=== PATIENT | male | born 1945 | race Caucasian/White ===

== ENCOUNTER 2019-02-18 11:04 | Emergency (ER) | payer OTHER ==
[~2019-02-18] VITALS: Ht 175.3 cm; Wt 105.7 kg
[2019-02-18] MEDS ORDERED: FLAXSEED1000 MG PO (11:41)
[2019-02-18] MEDS ORDERED: ONE DAILY MULT1 EAC1 PO (11:41)
[2019-02-18] MEDS ORDERED: VITAMIN D31000 UNIT PO (11:42)
[2019-02-18] MEDS ORDERED: LISINOPRIL40 MG PO (11:42)
[2019-02-18] MEDS ORDERED: MAGNESIUM OXID420 MG PO (11:42)
[2019-02-18] MEDS ORDERED: ZOCOR40 MG PO (11:42)
[2019-02-18] MEDS ORDERED: FUROSEMIDE40 MG PO (11:42)
[2019-02-18] MEDS ORDERED: CARVEDILOL12.5 MG PO (11:43)
[2019-02-18] MEDS ORDERED: ISOSORBIDE DINI20 MG PO (13:13)
--- NOTE | 2019-02-18 22:40 | EKG ---
[facility] [address] [facility] [place], [place] [address] Signed Poor data quality, interpretation may be adversely affected Normal sinus rhythm Low voltage QRS ST \T\ T wave abnormality, consider anterior ischemia Abnormal ECG No previous ECGs available Confirmed by ALICE CARRILLO MD ([id number]) on 02/18/2019 10:40:37 PM Electronically Signed By: ALICE CARRILLO MD 02/18/19 2240 PATIENT NAME: TANJAFRANCIS W Electrocardiogram DATE OF : 47 PHYSICIAN: ALICE CARRILLO MD REPORT #: [id number] REPORT IS CONFIDENTIAL AND NOT TO BE RELEASED WITHOUT AUTHORIZATION
== END 2019-02-18 13:29 | disposition home or self-care (01) ==
LOC: ED 11:04
DX: I11.0 Hypertensive heart disease with heart failure (principal); I50.9 Heart failure, unspecified; Z87.891 Personal history of nicotine dependence; Z79.899 Other long term (current) drug therapy
CPT/HCPCS: 71046; 80053; 83880; 84484; 85025; 93005; 93010; 96374; 99285-25

== ENCOUNTER 2019-03-08 08:16 | Inpatient (IN) | payer MEDICARE ==
[~2019-03-08] VITALS: Ht 175.3 cm; Wt 106.8 kg
[~2019-03-08 08:16] MED LIST: CARVEDILOL12.5 MG PO; FLAXSEED1000 MG PO; FUROSEMIDE40 MG PO; ISOSORBIDE DINI20 MG PO; LISINOPRIL40 MG PO; MAGNESIUM OXID420 MG PO; ONE DAILY MULT1 EAC1 PO; VITAMIN D31000 UNIT PO; ZOCOR40 MG PO
--- OUTSIDE RECORDS SUMMARY | 2019-03-08 08:20 | XMS ---
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 Denzel has no Care Guidelines for this patient. Meggan VISIT COUNT (12 MO.) [address] [facility] TOTAL 2 NOTE: Visits indicate total known visits. ED/C VISIT TRACKING (12 MO.) 03/08/2019 08:17 [facility] [place] TYPE: Emergency COMPLAINT: - COUGING UP BLOOD 02/18/2019 11:05 [facility] [place] TYPE: Emergency COMPLAINT: - BLOOD PRESSURE PROBLEM, SOB DIAGNOSES: - Shortness of breath - Other termite control service representative (current) drug therapy - Personal history of nicotine dependence - Hypertensive heart disease with heart failure - Heart failure, unspecified INPATIENT VISIT TRACKING (12 MO.) No inpatient visits to display in this time frame [email or web address]
[2019-03-08] MEDS ORDERED: VENTOLIN HFA18 GM INH (08:38)
[2019-03-08] MEDS ORDERED: CLONIDINE HCL0.1 MG PO (08:39)
--- NOTE | 2019-03-08 11:47 | NUR ---
1130 pt arrived on unit from ED via stretcher on heart monitor and 2L NC. No complaints of pain at this time. Will continue to monitor
--- NOTE | 2019-03-08 17:16 | NUR ---
1600 in to see pt. POC discussed all questions answered at this time. IV fluids DC per order. Will continue to monitor
--- NOTE | 2019-03-08 17:33 | EKG ---
[facility] [address] [facility] [place], [place] [address] Signed Sinus rhythm with premature atrial complexes Low voltage QRS T wave abnormality, consider anterior ischemia Prolonged QT Abnormal ECG When compared with ECG of 18-FEB-2019 11:15, premature atrial complexes are now present Confirmed by MAGALIS GRAVES DO ([id number]) on 03/08/2019 5:33:36 PM Electronically Signed By: MAGALIS GRAVES DO 03/08/19 1733 PATIENT NAME: FRANCIS AGRAWAL Electrocardiogram DATE OF : 47 PHYSICIAN: MAGALIS GRAVES DO REPORT #: [id number] REPORT IS CONFIDENTIAL AND NOT TO BE RELEASED WITHOUT AUTHORIZATION
--- NOTE | 2019-03-08 19:42 | NUR ---
Assisted patient to bathroom, SBA, gait steady, increased SOB noted with activity, RR between 34 and 40 with ambulation, SpO2 91% on 2L O2. Now resting in chair, RR now between 25 and 32, SpO2 98% on 2L, denies feeling SOB at rest. Alert and oriented x4, uses call light appropriately. HR well controlled, BP WNL, peripheral pulses felt in all extremities, edema in bilateral lower exremities noted, worse in right leg, right leg is warm to touch, left leg cool to touch, patient denies pain, cap refill <3 seconds in all extremities. Lungs have crackles in left upper and lower, clear on right side. bowel tones active, non-tender, denies nausea. Denies further needs at this time. Call light within reach.
--- NOTE | 2019-03-08 21:24 | NUR ---
Assisted patient to bed, remains SBA. Now resting comfortably with HOB elevated to 45 degrees, requires 2 pillows for sleeping comfort, patient states "it's the only way I can breathe at night." Denies further needs at thsi time. Vitals WNL, RR 24, SpO2 97% on 2L O2. Call light within reach.
--- NOTE | 2019-03-08 22:51 | NUR ---
Patient is restful with eyes closed, breathing is even and unlabored, SpO2 95% on 2L O2, RR 22. Call light within reach.
--- NOTE | 2019-03-08 23:19 | NUR ---
Assisted to bathroom, SBA, gait steady, RR increased to low 30s with activity, SpO2 down to 88% on 2L O2. Now resting in bed again, RR down to 22, SpO2 97% on 2L O2. Assessment done, crackles in LLL of lungs, clear throughout all otther lung collado, denies SOB while at rest. No other changes from previous assessment. BLE continue to have well felt peripheral pulses, right lower leg warm to touch, denies calf tenderness, 3+ edema remains. Denies further needs at this time, call light within reach.
--- NOTE | 2019-03-09 01:00 | NUR ---
Patient remains restful with eyes closed, breathing is even and unlabored, RR 21, SpO2 95% on 2L O2. Call light within reach.
--- NOTE | 2019-03-09 02:41 | NUR ---
Patient remains restful with eyes closed, breathing is even and unlabored, R 22, SpO2 97% on 2L O2. Call light within reach.
--- NOTE | 2019-03-09 03:54 | NUR ---
Remains restful, breathing unlabored, vitals WNL. Call light within reach.
--- NOTE | 2019-03-09 04:25 | NUR ---
Assisted to bathroom, SBA, gait steady, RR increased to 30s with ambulation, SpO2 remains < 95%. Now resting in bed again, RR down to 22 to 24, SpO2 98% on 2L O2. Assessment done, lungs have crackles in LLL, clear in all other collado. No acute changes from previous. Denies further needs at this time. Call light within reach.
--- NOTE | 2019-03-09 05:49 | NUR ---
Paient sitting up in bed watching tv, RR 20, SpO2 96% on 2L O2. Denies needs at this time. Call light within reach.
--- NOTE | 2019-03-09 05:52 | NUR ---
Patient rested well throughout the night. Vitals WNL, no complaints of pain. Alert and oriented, calls appropriately. RR 22 to 24 at rest, up to 30s with activity, has remained on 2L O2 all shift, SpO2 between 92% and higher with 2L. Lungs have crackles in LLL of lungs, clear in all other lung collado. 3+ pitting edema to RLE, warm to touch, 2+ pitting edema in LLE, denies calf tenderness, peripheral pulses well felt in BLE. Minimal interventions required.
--- NOTE | 2019-03-09 07:30 | NUR ---
REPORT RECIEVED. PATIENT IN CHAIR, IS W/O C/O.
--- NOTE | 2019-03-09 08:00 | NUR ---
ASSESSMENT DONE. DENIES PAIN OR SHORTNESS OF BREATH. TALKED WITH PAIENT ABOUT PLAN OF CARE FOR DAY. PATIENT IS UNDERSTANDING.
--- NOTE | 2019-03-09 09:00 | NUR ---
REMAINS IN CHAIR. TOOK 100% OF BREAKFAST. IS W/O C/O. VERY TALKATIVE.
--- NOTE | 2019-03-09 09:30 | NUR ---
EDUCATION ON PE GIVEN.
--- NOTE | 2019-03-09 09:50 | NUR ---
PATIENT WITH IN ROOM. PATIENT REMAINS IN CHAIR. STATES HE FEELS MORE COMFORTABLE IN CHAIR THAN BED.
--- NOTE | 2019-03-09 10:15 | NUR ---
PHYS THERAPY HERE TO WORK WITH PATIENT. PATIENT AMBULATED IN [facility], PHYS THERAPY AND RN WITH PATIENT. HR AT REST 66, WITH [id number]. O2 SAT ON 2 L NC WITH EXERTION 90-92 UPON RETURN TO ROOM. IS DYSPNEIC WITH EXERTION.
--- NOTE | 2019-03-09 12:00 | NUR ---
ASSESSMENT UNCHANGED. CONTINUE TO SIT IN CHAIR. WILL BE TRANSFERED TO MEDICAL FLOOR THIS AFTERNOON.
--- NOTE | 2019-03-09 14:00 | NUR ---
PT ARRIVED TO [facility] ROOM 115 VIA CHAIR ON 1LPNC. PT IS A/O X4 AND DENIES SOB WITH O2 SAT OF 94% PER CPOX. BEDSIDE REPORT RECEIVED FROM EDY JOSHI. ASSESSMENT COMPLETED. PT PROVIDED WITH CRANBERRY JUICE SODA PER REQUEST AND DENIES FURTHER NEEDS/CONCERNS. CALL LIGHT, PERSONAL ITEMS AND H20 IN REACH. PT DENIES PAIN, SOB, NASUEA OR ANY OTHER SYMPTOMS.
--- NOTE | 2019-03-09 14:00 | NUR ---
to med-surg via CHAIR. CHAIR SIDE REPORT GIVEN.
--- NOTE | 2019-03-09 15:52 | NUR ---
PT SITTING UP IN CHAIR, ASSISTED PT WITH ORDERING DINNER. CALL LIGHT AND H20 IN REACH. PT DENIES NASUEA, SOB OR PAIN. NO NEEDS/CONCERNS VOICED.
--- NOTE | 2019-03-09 16:57 | NUR ---
Medications reconciled with physician notes and patient interview
--- NOTE | 2019-03-09 17:58 | NUR ---
PT BACK TO CHAIR FROM RESTROOM WITH SBA. PT BACK ON CPOX AND REMAINS ON 1LPNC, SATTS 94% PER CPOX. Call light and h20 in reach. PM medication administered. Pt denies sob, pain or nasuea. Pt appears to be in no acute distress, [id number].
--- NOTE | 2019-03-09 19:07 | NUR ---
IN ROOM FOR REPORT, PT WAS RESTING WITH EYES CLOSED IN CHAIR AND O2 WAS AT 89%. CHRISTIE SNOW INCREASED O2 TO 1.5 LNC AND HE INCREASED TO 93% AND AWOKE. HE DENIES NEEDS AT THIS TIME. CALL LIGHT IS WITHIN REACH.
--- NOTE | 2019-03-09 20:40 | NUR ---
PT CALLED TO USE RESTROOM, ASSISTED HIM TO BED. WARM BLANK PROVIDED AND PERSONAL BELONGINGS WITHIN REACH. HE DENIES FURTHER NEEDS AT THIS TIME CALL LIGHT IS CLOSE.
--- NOTE | 2019-03-09 21:20 | NUR ---
IN ROOM TO ADMINISTER MEDICATIONS AND ASSESS PT. HE DENIES PAIN AT THIS TIME. PROVIDED PT WITH ORAL SWABS. PT QUESTIONED THE DIFFERENT DOSES OF HIS MEDICATIONS, HI DR GRAVES'S NOTES EXPLAINED THAT HE IS BEING TIRTRATED BACK TO NORMAL DOSE AND PT UNDERSTOOD. THIS RN HAD DIFFICULTY WITH Kambit [employer]ASS[employer] SO [employer] SOLUTION ARCHITECT BRYANT SCANNED HIS MEDICATIONS. PT IS READY FOR BED AND DENIES FURTHER NEEDS. CALL LIGHT IS WITHIN REACH.
--- NOTE | 2019-03-10 00:03 | NUR ---
PT IS RESTING WITH EYES CLOSED, RESPIRATIONS ARE EVEN AND NONLABORED ON 2 LNC AND 92% ON CPOX. CALL LIGHT IS WITHIN REACH.
--- NOTE | 2019-03-10 00:45 | NUR ---
PT'S CPOX WAS BEEPING D/T LOW BATTERY, FIXED ISSUE AND ASSISTED PT TO THE RESTROOM. HE IS BACK IN BED AND DENIES FURTHER NEEDS AT THIS TIME. CALL LIGHT IS WITHIN REACH.
--- NOTE | 2019-03-10 02:08 | NUR ---
PT IS RESTING WITH EYES CLOSED, RESPIRATIONS ARE EVEN AND NONLABORED ON 2LNC AND CPOX. CALL LIGHT IS WITHIN REACH.
--- NOTE | 2019-03-10 03:21 | NUR ---
PT IS RESTING WITH EYES CLOSED, RESPIRATIONS ARE EVEN AND NONLABORED ON CPOX. CALL LIGHT IS WITHIN REACH.
--- NOTE | 2019-03-10 04:30 | NUR ---
PT IS AWAKE FOR THE DAY, HE DENIES PAIN AT THIS TIME. VS, I&O, AND WEIGHT OBTAINED. HE DENIES NEEDS AT THIS TIME. CALL LIGHT IS WITHIN REACH.
--- NOTE | 2019-03-10 05:05 | NUR ---
PT HAD A GOOD NIGHT. HE DENIES HEMOPTYSIS AND PAIN. HIS 02 WAS INCREASED TO 2 LNC WHILE SLEEPING TO MAINTAIN ABOVE 90%. HE AMBULATES SBA AND HAS SOME SOB WITH EXERTION. HE RECEIVES SCHEDULED NEBS.
--- NOTE | 2019-03-10 05:21 | NUR ---
pt wanted a warm wash cloth to clean his face, we got into a convo about birds of prey- interesting to say the least. pt was satisfied with the wash cloth and convo. he is a swell veronica.
--- NOTE | 2019-03-10 07:00 | NUR ---
PT SITTING UP IN CHAIR, O2 SAT 95% ON 2LPNC SO TITRATED DOWN TO 1LPNC AND SATS AT 93%. PT DENIES SOB, PAIN OR ANY OTHER SX'S AT THIS TIME. CALL LIGHT AND H20 IN REACH. BEDSIDE REPORT RECEIVED FROM EDY ALVARADO.
--- NOTE | 2019-03-10 08:54 | NUR ---
Pt sitting up in chair watching tv. Pt maintaining o2 sats in low 90's on 1lpnc at rest. Assessment completed. Call light and h2o in reach. Pt denies sob, pain or any other symptoms. Pt verbalized eagerness to discharge today.
--- NOTE | 2019-03-10 10:27 | NUR ---
ANSWERED CALL LIGHT AND PT ASSISTED WITH SBA TO RESTROOM. PT AGREES TO USE CALL LIGHT WHEN FINISHED.
[2019-03-10] MEDS ORDERED: XARELTO15 MG PO (10:53)
[2019-03-10] MEDS ORDERED: XARELTO20 MG PO (10:55)
--- NOTE | 2019-03-11 11:31 | NUR ---
WAS NOTIFIED BY DR GRAVES THAT THE PT WANTED TO TALK ABOUT HOW TO GET IT ARRANGED TO GET [facility]. I CALLED HIS HOME AND HIS ANSWERED AND STATED THEY HAD BEEN SET UP WITH IN HOME MED OVER THE WEEKEND AND THAT THAT WOULD BE GOOD FOR NOW. THEN ABOUT AN HOUR TO HOUR AND A HALF THE PT HIMSELF CALLED AND STATES THAT HE WANTS HIS O2 TO BE [facility]OUGH [facility]. I TOLD HIM I WOULD START THAT PROCESS, BUT IT MIGHT TAKE A LITTLE TO GET IT SET UP WITH THEM. PT STATES THAT WOULD BE FINE. CHART NOTES FROM PT HOSPITAL VISIT 03/08/19 TO 03/10/19 SENT TO [facility] INCLUDING ER NOTES AND SUMMARY, H AND P, PROG NOTES, DC SUMMARY AND PACKET, ALSO ORDER AND RT HOME O2 QUALIF[facility] @[phone]. RECIEVED FAX CONFIRMATION OF THIS FAX. ALSO FAXED CHART NOTES TO JES AT [facility] IN PT DEPT. RECIEVED FAX CONFIRMATION ON THIS ALSO.
== END 2019-03-10 12:11 | disposition home or self-care (01) | DRG 175 ==
LOC: ED 08:16 → CCU 11:02 → MS 03-09 14:00
PROVIDERS: ADMIT Student in an Organized Health Care Education/Training Program
DX: I26.99 Other pulmonary embolism without acute cor pulmonale (principal); J96.21 Acute and chronic respiratory failure with hypoxia; I82.401 Acute embolism and thrombosis of unspecified deep veins of right lower extremity; I27.20 Pulmonary hypertension, unspecified; J44.9 Chronic obstructive pulmonary disease, unspecified; I10 Essential (primary) hypertension; E78.5 Hyperlipidemia, unspecified; E87.70 Fluid overload, unspecified; Z79.899 Other long term (current) drug therapy; Z87.891 Personal history of nicotine dependence
CPT/HCPCS: 36415; 71045; 71260; 80048; 80053; 83735; 83880; 84484; 85025; 85379; 93005; 93010; 93971; 94640; 94761; 94762; 96372; 97162; 97530; 99285-25; J1650; J7120; Q9967

== ENCOUNTER 2020-10-01 07:11 | Day surgery (SDC) | payer OTHER ==
[~2020-10-01] VITALS: Ht 177.8 cm; Wt 105.0 kg
[~2020-10-01 07:11] MED LIST changes: +CLONIDINE HCL0.1 MG PO; +ISOSORBIDE MONO20 MG PO; +K-TAB ER20 MEQ PO; +STIOLTO RESPIMAT4 GM INH; +VENTOLIN HFA18 GM INH; +XARELTO15 MG PO; +XARELTO20 MG PO
--- NOTE | 2020-10-01 09:06 | NUR ---
10/01/20 0906 Sandy Barkley 0900 PT ARRIVED TO PACU ON 2L VIA MASK, VSS. PT ASLEEP. 903 PT WAKES TO TACTILE STIMULI AND IS REORIENTED TO PACU. PT EASILY FALLS BACK TO SLEEP, RESP EVEN AND UNLABORED.
--- NOTE | 2020-10-01 17:05 | OR ---
[facility] [address] [place], [place] [address] Signed DATE OF OPERATION: 10/01/2020 SURGEON: Atul Gorman MD PREOPERATIVE DIAGNOSES: 1. Unremarkable colonoscopy at age 51. 2. Personal history of adenomatous colonic polyps, age 61 (2016). 3. Diverticulosis. 4. Long redundant left colon. POSTOPERATIVE DIAGNOSES: 1. Tizmfbw-[id number] sigmoid diverticulosis. 2. Angulated and tortuous sigmoid colon. PROCEDURE: Colonoscopy without biopsy. ESTIMATED BLOOD LOSS: None. INDICATIONS: Jose J is a 75-year-old gentleman, asked to see me for a followup colonoscopy. He had a negative colonoscopy in his 50s while living in [place], [place]. He then had a colonoscopy in February of 2016 with [facility] in [place], [place]. He was said to have a long redundant colon with diverticulosis and several adenomas and polyps were removed. He was age 71. Currently, he has no lower GI complaints. There is no family history of colon cancer or polyps. In the office, I gave Jose J a pamphlet on colonoscopy, we looked at that together along with the risks including, but not limited to gas bloating, crampy abdominal pain, bleeding, perforation requiring surgery, and missed diagnosis. We also discussed the need for IV conscious sedation. He expressed understanding and wished to proceed. DESCRIPTION OF PROCEDURE: Jose J was taken into our endoscopy suite and placed in the left lateral decubitus position. He was given a total of 4 mg of Versed and 100 mcg of fentanyl to cover the case. A digital rectal exam was performed and this was unremarkable. The adult colonoscope was introduced and advanced under direct visualization of the camera. He in fact had a difficult angulated and tortuous sigmoid colon. That actually took several minutes to get through very carefully. He does have moderate sigmoid diverticulosis. They are moderate in size, moderate in number, and scattered about. The scope then Electronically Signed By: ATUL GORMAN MD 10/01/20 1705 PATIENT NAME: JOSE J AGRAWAL OPERATIVE REPORT DATE OF : 47 REPORT #: [id number] PHYSICIAN: ATUL GORMAN MD PCP: BESS HAMMONDS MD REPORT IS CONFIDENTIAL AND NOT TO BE RELEASED WITHOUT AUTHORIZATION [facility] [address] [place] [id number] Signed passed quite readily around into the cecum itself. We could easily see the appendiceal orifice and ileocecal valve. The scope was slowly withdrawn. We taken several pictures for photodocumentation. His prep was slightly less than desirable. I think in the future he would be better served with a double bowel prep. Nevertheless, we saw no evidence of any polyps. His rectum was unremarkable. Upon retroflexion of scope, he has a couple of internal anal skin tags. After this, the gas was suctioned out. The colonoscope removed. Jose J tolerated the procedure quite well. RECOMMENDATIONS: Jose J can return in three years for repeat colonoscopy. He should undergo a double bowel prep. Atul Gorman MD ALB/MODL /[id number] cc: MD Bess Crowell MD Copies: ATUL GORMAN MD, MICAIAH MATTHEW MD ~ Electronically Signed By: ATUL GORMAN MD 10/01/20 1705 PATIENT NAME: JOSE J AGRAWAL OPERATIVE REPORT DATE OF : 47 REPORT #: [id number] PHYSICIAN: ATUL GORMAN MD PCP: BESS HAMMONDS MD REPORT IS CONFIDENTIAL AND NOT TO BE RELEASED WITHOUT AUTHORIZATION
== END 2020-10-01 10:00 | disposition home or self-care (01) ==
LOC: OPS 07:11 → DS 07:11 → OPS 08:15 → DS 08:15 → OPS 10:00
PROVIDERS: ATTEND Colon & Rectal Surgery
PROC: 0DJD8ZZ Inspection of Lower Intestinal Tract, Via Natural or Artificial Opening Endoscopic (ICD-10-PCS; principal; 2020-10-01 08:15)
DX: Z12.11 Encounter for screening for malignant neoplasm of colon (principal); Q43.8 Other specified congenital malformations of intestine; K57.30 Diverticulosis of large intestine without perforation or abscess without bleeding; K56.609 Unspecified intestinal obstruction, unspecified as to partial versus complete obstruction; K64.8 Other hemorrhoids; K64.4 Residual hemorrhoidal skin tags; I13.0 Hypertensive heart and chronic kidney disease with heart failure and stage 1 through stage 4 chronic kidney disease, or unspecified chronic kidney disease; N18.2 Chronic kidney disease, stage 2 (mild); I50.30 Unspecified diastolic (congestive) heart failure; J44.9 Chronic obstructive pulmonary disease, unspecified; E78.00 Pure hypercholesterolemia, unspecified; R73.9 Hyperglycemia, unspecified; Z86.718 Personal history of other venous thrombosis and embolism; Z86.010 Personal history of colon polyps; Z86.711 Personal history of pulmonary embolism; Z79.01 Long term (current) use of anticoagulants; Z79.899 Other long term (current) drug therapy
CPT/HCPCS: 99153; G0500; J2250; J3010; J7121

== ENCOUNTER 2025-08-13 13:39 | Emergency (ER) | payer OTHER, MEDICARE ==
[~2025-08-13] VITALS: Ht 177.8 cm; Wt 108.1 kg
[2025-08-13] MEDS ORDERED: JOCK ITCH RELIE14 GM (14:15)
[2025-08-13] MEDS ORDERED: NORVASC5 MG PO (14:17)
[2025-08-13] MEDS ORDERED: HYDRALAZINE HCL25 MG PO (14:17)
[2025-08-13] MEDS ORDERED: TORSEMIDE20 MG (14:18)
[2025-08-13 15:04] VITALS: BP 142/80
== END 2025-08-13 15:07 | disposition home or self-care (01) ==
LOC: ED 13:39
DX: L76.21 Postprocedural hemorrhage of skin and subcutaneous tissue following a dermatologic procedure (principal); I11.0 Hypertensive heart disease with heart failure; I50.9 Heart failure, unspecified; Z87.891 Personal history of nicotine dependence
CPT/HCPCS: 99283

== ENCOUNTER 2025-08-23 07:15 | Observation (INO) | payer OTHER, MEDICARE ==
[~2025-08-23] VITALS: Ht 177.8 cm; Wt 107.0 kg
[~2025-08-23 07:15] MED LIST changes: +HYDRALAZINE HCL25 MG PO; +JOCK ITCH RELIE14 GM; +NORVASC5 MG PO; +TORSEMIDE20 MG
--- OUTSIDE RECORDS SUMMARY | 2025-08-23 07:22 | XMS ---
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 - Visits in 30 Days [facility] PHONE: Unknown Denzel has no Care Guidelines for this patient. Meggan VISIT COUNT (12 MO.) [address] [facility] TOTAL 2 NOTE: Visits indicate total known visits. ED/UCC VISIT TRACKING (12 MO.) 08/23/2025 07:16 [facility] [place] TYPE: Emergency COMPLAINT: - SHORTNESS OF BREATH 08/13/2025 13:40 [facility] [place] TYPE: Emergency COMPLAINT: - POST OP PROBLEM DIAGNOSES: - Heart failure, unspecified - Hypertensive heart disease with heart failure - Personal history of nicotine dependence - Postprocedural hemorrhage of skin and subcutaneous tissue following a dermatologic procedure INPATIENT VISIT TRACKING (12 MO.) No inpatient visits to display in this time frame [email or web address]
[2025-08-23] MEDS ORDERED: ALBUTEROL/IPRATROPIUM 3 ML NEB ONE (07:28)
[2025-08-23 07:41] LABS: BASOPHILS 0.4 % (0.2-1.2); EOSINOPHILS 1.3 % (0.8-7.0); LYMPHOCYTES 22.0 % (21.8-53.1); MCH 34.2 PG (25.7-32.2); MCHC 33.2 g/dL (32.3-36.5); MCV 103.0 fL (79.0-92.2); MONOCYTES 8.4 % (5.3-12.2); NEUTROPHILS 67.7 % (34.0-67.9); RBC 5.00 M/uL (4.63-6.08)
[2025-08-23] MEDS ORDERED: ALBUTEROL/IPRATROPIUM 3 ML NEB INH ONE (07:45)
[2025-08-23] MEDS ORDERED: ALBUTEROL/IPRATROPIUM 3 ML NEB INH PRN (07:45)
[2025-08-23 08:00] LABS: ALT (SGPT) 19.0 U/L (14-59); AST (SGOT) 18.0 U/L (15-37); GLOMERULAR FILTRATION RATE,EST 59.0 mL/min (>60); PROTEIN, TOTAL 7.4 g/dL (6.4-8.2); UREA NITROGEN 21.0 mg/dL (7-18)
[2025-08-23] MEDS ORDERED: SODIUM CHLORIDE 0.9% 500 ML IV PRN (09:15)
[2025-08-23] MEDS ORDERED: AMLODIPINE BESYLATE 5 MG TAB PO SCH (10:45)
[2025-08-23] MEDS ORDERED: FUROSEMIDE 40 MG TAB PO SCH (10:46)
[2025-08-23] MEDS ORDERED: ISOSORBIDE MONONITRATE 20 MG TAB PO SCH (10:47)
[2025-08-23] MEDS ORDERED: AZITHROMYCIN 500 MG in DEXTROSE 5% 250 ML IV SCH (10:56)
[2025-08-23] MEDS ORDERED: SODIUM CHLORIDE 0.9% 1,000 ML IV SCH (11:00)
[2025-08-23] MEDS ORDERED: ACETAMINOPHEN 325 MG TAB PO PRN (11:00)
[2025-08-23] MEDS ORDERED: PHARMACY RENAL DOSE ADJUSTMENT 1 DOSE MISC PO SCH (12:00)
[2025-08-23 12:33] VITALS: BP 138/85
--- NOTE | 2025-08-23 13:50 | NUR ---
Patient to the medical floor. Patient is awake, alert and oriented x3. Patient's vital signs stable, afebrile. Patient is on 4L oxygen per nc, sp02 96%. Patient reports shortness of breath, hob elevated. Patient oriented to room and call light.
[2025-08-23] MEDS ORDERED: ALBUTEROL/IPRATROPIUM 3 ML NEB INH SCH (14:00)
[2025-08-23 18:20] VITALS: BP 159/89
[2025-08-23 18:58] VITALS: BP 159/89
--- NOTE | 2025-08-23 19:49 | NUR ---
GOT REPORT FROM DAY SHIFT NURSE.
[2025-08-23 20:31] VITALS: BP 146/79
[2025-08-23 21:59] VITALS: BP 146/79
--- NOTE | 2025-08-23 22:07 | NUR ---
PATIENT CURRENTLY SLEEPING IN BED WITH 2L NC ON. PATIENT HAS A CPOX ON. TELE 8. DENIES ANY CARES AT THIS TIME. BED IN LOW POSITION. CALL LIGHT WITHIN REACH.
--- NOTE | 2025-08-23 22:21 | NUR ---
PATIENT FEET ELEVATED. HOB UP TO PATIENTS COMFORT.
--- NOTE | 2025-08-23 23:42 | NUR ---
PATIENT CURRENLTY SLEEPING, REGULAR RESPIRATIONS NOTED.
[2025-08-24] VITALS (7 sets, daily range): BP systolic 133–166; BP diastolic 72–110
--- NOTE | 2025-08-24 01:55 | NUR ---
NEW IV FLUIDS HUNG UP, PATIENT REQUEST A PUDDING FOR A SNACK. DENIES ANY OTHER NEEDS.
--- NOTE | 2025-08-24 02:23 | NUR ---
PATIENT SLEEPING, REGULAR RESPIRATIONS NOTED.
--- NOTE | 2025-08-24 04:21 | NUR ---
PATIENT CALLED TO USE THE URINAL. URINAL WAS EMPTIED. CALL LIGHT IS WITHIN REACH AND NO FURTHER NEEDS AT THIS TIME.
--- NOTE | 2025-08-24 05:13 | NUR ---
PATIENT UP FOR STANDING WEIGHT LAB WAS IN ROOM AND PATIENT AWAKE. FRESH COFFEE GIVEN. PATIENT WATCHING TV.
[2025-08-24 05:14] LABS: BASOPHILS 0.1 % (0.2-1.2); EOSINOPHILS 0 % (0.8-7.0); LYMPHOCYTES 6.4 % (21.8-53.1); MCH 33.8 PG (25.7-32.2); MCHC 33.2 g/dL (32.3-36.5); MCV 101.7 fL (79.0-92.2); MONOCYTES 2.2 % (5.3-12.2); NEUTROPHILS 90.8 % (34.0-67.9); RBC 4.62 M/uL (4.63-6.08)
[2025-08-24 05:24] LABS: GLOMERULAR FILTRATION RATE,EST 53.0 mL/min (>60); UREA NITROGEN 22.0 mg/dL (7-18)
--- NOTE | 2025-08-24 05:35 | NUR ---
PT SITTING UP IN BED WATCHING TV. VITALS DONE, WATER REFILLED. CALL LIGHT IN REACH, NO NEEDS AT THIS TIME/
--- NOTE | 2025-08-24 07:15 | NUR ---
REPORT RECIEVED FROM EDY VILLEDA. PATIENT RESTING IN BED AND STATES HE IS WAITING FOR BREAKFAST AND HIS . WHITE BOARD UPDATED. PATIENT WITHOUT ANY NEEDS AT THIS TIME. CALL LIGHT AND PERSONAL BELONGINGS ARE WITHIN REACH.
--- NOTE | 2025-08-24 08:43 | NUR ---
PATIENT MEDICATED PER EMAR. PATIENT ASSESMENT COMPLETED. VITAL SIGNS TAKEN AND ARE STABLE. PATIENT IS WITHOUT FURHTER NEEDS AT THIS TIME. CALL LIGHT AND PERSONAL BELONGINGS ARE WITHIN REACH. IV FLUIDS INFUSING PER ORDER.
--- NOTE | 2025-08-24 09:30 | NUR ---
In with pt with the respiratory therapist to assist her with qualifying the pt for home O2. The pt states he is on O2 at home but doesn't know how much, but that his knows. After ambulating with the RT, it is noted that the pt had to stop twice and required 4LPM via NC. Sats dropped down to 77 at the lowest. Pt back to bed. arrives and is speaking with RT now.
--- NOTE | 2025-08-24 09:51 | NUR ---
PT SITTING UP IN BED, SEEMS CONFUSED ABOUT WHERE HE IS. CLEANED UP PT ROOM AND REMOVED TRASH. PT HAS CALL LIGHT WITHIN REACH. RESPITORY THERAPY IN ROOM AND SPOUSE JUST ARRIVED.
--- NOTE | 2025-08-24 10:45 | NUR ---
PC to [facility] in [place] to ask about setting up Home O2 for this pt as Case Mgmnt is not available here on Sundays (okay per Credit Card Interviewer, Flako Pritchett). Spoke with cdl dedicated truck driver Wilder who advised he is coming from [facility] and provided his cell phone number for the pt to call when they get home. He advised that I needed to fax pt contact information, insurance information, and a RX to [facility] in [place] so they can bill insurance on Monday. Fax sent with cover sheet and PC to [facility] in [place] to let them know what I was faxing. I will leave a note for Case management.
--- NOTE | 2025-08-24 10:50 | NUR ---
PATIENT SITTING UP IN HIS BED AND IS WITHOUT ANY NEEDS AT THIS TIME. CALL LIGHT AND PERSONAL BELONGINGS ARE WITHIN REACH.
[2025-08-24] MEDS ORDERED: AZITHROMYCIN250 MG PO (12:11)
[2025-08-24] MEDS ORDERED: METHYLPREDNISOLO4 M1 PO (12:11)
--- NOTE | 2025-08-24 13:42 | NUR ---
PT GETTING READY TO LEAVE. HELPED PT GET DRESSED, THEN RN CAME IN TO SAY THERE WAS A DELAY DUE TO THE PERSON BRINGING O2 JUST LEAVING [place]. PT WILL WATCH TV FOR ANOTHER HOUR UNTIL O2 PERSON ARRIVES.
--- NOTE | 2025-08-24 13:46 | NUR ---
Wilder from [facility] here for pt portable home O2 for him to go home with
--- NOTE | 2025-08-24 15:15 | EKG ---
[facility] [address] [facility] [place] [address] Signed Atrial fibrillation with premature ventricular or aberrantly conducted complexes Left axis deviation Pulmonary disease pattern Nonspecific ST and T wave abnormality Prolonged QT Abnormal ECG When compared with ECG of 08-MAR-2019 08:46, Atrial fibrillation has replaced Sinus rhythm ST now depressed in Inferior leads Nonspecific T wave abnormality no longer evident in Inferior leads T wave inversion no longer evident in Anterior leads Confirmed by GISELE PURI MD ([id number]) on 08/24/2025 3:14:43 PM Electronically Signed By: GISELE PURI 08/24/25 1515 PATIENT NAME: FRANCIS AGRAWAL Electrocardiogram DATE OF : 47 PHYSICIAN: GISELE PURI REPORT #: [id number] REPORT IS CONFIDENTIAL AND NOT TO BE RELEASED WITHOUT AUTHORIZATION
--- NOTE | 2025-08-25 10:29 | NUR ---
ORDER, CLINICALS, FACESHEET FAXED TO [facility] AND [facility] FOR HOME OXYGEN
--- NOTE | 2025-08-25 14:53 | NUR ---
RECEIVED CALL FROM LIANE AT [facility] REGARDING WHICH INSURANCE PATIENT HAS HIS PRIMARY. CALLED AND SPOKE WITH [employer], . STATES PATIENT IS MOBILE WITHOUT ISSUES AND THEY DO NOT FEEL HE NEEDS HOME HEALTH. CALLED HH AND CANCELLED ORDERS.
== END 2025-08-24 13:55 | disposition home or self-care (01) ==
LOC: ED 07:15 → MS 11:56
PROVIDERS: Emergency Medicine; ADMIT Internal Medicine; ATTEND Internal Medicine
DX: J44.1 Chronic obstructive pulmonary disease with (acute) exacerbation (principal); J96.01 Acute respiratory failure with hypoxia; I11.0 Hypertensive heart disease with heart failure; I50.9 Heart failure, unspecified; E66.9 Obesity, unspecified; Z68.33 Body mass index [BMI] 33.0-33.9, adult; Z66 Do not resuscitate; Z87.891 Personal history of nicotine dependence; Z79.01 Long term (current) use of anticoagulants; Z79.899 Other long term (current) drug therapy; Z91.148 Patient's other noncompliance with medication regimen for other reason
CPT/HCPCS: 36415; 71045; 80048; 80053; 83735; 83880; 84484; 85025; 93005; 93010; 94640; 94760; 94761; 96365; 96376; 99285-25; G0378; J0456; J2919; J7030; J7060

== ENCOUNTER 2025-09-09 08:42 | Inpatient (IN) | payer OTHER, MEDICARE ==
[~2025-09-09] VITALS: Ht 177.8 cm; Wt 102.6 kg
[2025-09-09] VITALS (7 sets, daily range): BP systolic 104–164; BP diastolic 60–92
[~2025-09-09 08:42] MED LIST changes: +AZITHROMYCIN250 MG PO; -CARVEDILOL12.5 MG PO; +CARVEDILOL25 MG PO; -CLONIDINE HCL0.1 MG PO; +CLONIDINE HCL0.3 MG PO; +METHYLPREDNISOLO4 M1 PO; +ONE DAILY MUL400 MCG PO; -ONE DAILY MULT1 EAC1 PO; -TORSEMIDE20 MG; +TORSEMIDE20 MG PO
--- OUTSIDE RECORDS SUMMARY | 2025-09-09 08:45 | XMS ---
PreManage Notification: FRANCIS AGRAWAL Security Stage Electrician Events No recent Security Events currently on file CRITERIA MET - [facility] - 2 Visits in 30 Days [facility] Current PHONE: Unknown Denzel has no Care Guidelines for this patient. Meggan VISIT COUNT (12 MO.) 3 [facility] TOTAL 3 NOTE: Visits indicate total known visits. ED/C VISIT TRACKING (12 MO.) 09/09/2025 08:43 [facility] [place] TYPE: Emergency COMPLAINT: - SHORTNESS OF BREATH 08/23/2025 07:16 [facility] [place] TYPE: Emergency COMPLAINT: - SHORTNESS OF BREATH 08/13/2025 13:40 [facility] [place] TYPE: Emergency COMPLAINT: - POST OP PROBLEM DIAGNOSES: - Heart failure, unspecified - Hypertensive heart disease with heart failure - Personal history of nicotine dependence - Postprocedural hemorrhage of skin and subcutaneous tissue following a dermatologic procedure INPATIENT VISIT TRACKING (12 MO.) 08/23/2025 11:56 [facility] [place] TYPE: Observation COMPLAINT: - [facility] DIAGNOSES: - Acute respiratory failure with hypoxia - Body mass index [BMI] 33.0-33.9, adult - Chronic obstructive pulmonary disease with (acute) exacerbation - Do not resuscitate - Heart failure, unspecified - Hypertensive heart disease with heart failure - [facility] (current) use of anticoagulants - Obesity, unspecified - Other prison (current) drug therapy - Patient's other noncompliance with medication regimen for other reason - Personal history of nicotine dependence - Shortness of breath [email or web address]
[2025-09-09] MEDS ORDERED: ALBUTEROL/IPRATROPIUM 3 ML NEB INH PRN (09:00)
[2025-09-09] MEDS ORDERED: XARELTO15 MG PO (09:08)
[2025-09-09 09:30] LABS: BASOPHILS 0.3 % (0.2-1.2); EOSINOPHILS 0.5 % (0.8-7.0); LYMPHOCYTES 8.7 % (21.8-53.1); MCH 33.0 PG (25.7-32.2); MCHC 33.0 g/dL (32.3-36.5); MCV 100.0 fL (79.0-92.2); MONOCYTES 6.7 % (5.3-12.2); NEUTROPHILS 83.5 % (34.0-67.9); RBC 4.45 M/uL (4.63-6.08)
[2025-09-09 09:30] LABS: ALT (SGPT) 33.0 U/L (14-59); AST (SGOT) 29.0 U/L (15-37); GLOMERULAR FILTRATION RATE,EST 55.0 mL/min (>60); PROTEIN, TOTAL 6.9 g/dL (6.4-8.2); UREA NITROGEN 24.0 mg/dL (7-18)
[2025-09-09] MEDS ORDERED: FUROSEMIDE 100 MG/10 ML VIAL IV ONE (10:30)
[2025-09-09] MEDS ORDERED: OXYMETAZOLINE HCL 30 ML BTL NAS ONE (10:45)
[2025-09-09] MEDS ORDERED: TRANEXAMIC ACID 1,000 MG/10 ML AMP NAS ONE (10:45)
[2025-09-09] MEDS ORDERED: LIDOCAINE 2% VISCOUS 6 ML SYR TOP ONE ×2 (10:45→11:15)
[2025-09-09] MEDS ORDERED: LIDOCAINE 2% VISCOUS 6 ML SYR ONE (11:11)
[2025-09-09] MEDS ORDERED: TAMSULOSIN HCL 0.4 MG CAP PO ONE (11:45)
[2025-09-09] MEDS ORDERED: PANTOPRAZOLE SODIUM 40 MG TABEC PO SCH (12:25)
[2025-09-09] MEDS ORDERED: ACETAMINOPHEN 325 MG TAB PO PRN (12:30)
[2025-09-09] MEDS ORDERED: MAGNESIUM HYDROXIDE/AL HYDROX 30 ML CUP PO PRN (12:30)
[2025-09-09] MEDS ORDERED: ISOSORBIDE MONONITRATE 20 MG TAB PO SCH (12:33)
[2025-09-09] MEDS ORDERED: MAGNESIUM OXIDE 400 MG TABLET PO SCH (12:34)
[2025-09-09] MEDS ORDERED: ALBUTEROL SULFATE 8 GM INH INH PRN (12:45)
[2025-09-09] MEDS ORDERED: TRAMADOL HCL 50 MG TAB PO PRN (12:45)
[2025-09-09] MEDS ORDERED: NITROGLYCERIN 0.4 MG SUBL SL PRN (12:45)
[2025-09-09] MEDS ORDERED: FUROSEMIDE 40 MG/4 ML VIAL IV SCH (14:00)
[2025-09-09] MEDS ORDERED: SEVOFLURANE 250 ML BTL INH ONE (14:23)
--- NOTE | 2025-09-09 14:48 | NUR ---
TELEPHONE REPORT RECEIVED FROM EDY HARMON AT 1350. THIS TO ER TO TRANSFER PT TO MED-SURG. PT ARRIVES TO MED-SURG ROOM 121 VIA GURNEY. PT IS ALERT AND ORIENTED ON 2LPM O2 VIA TN. NEW GOWN DONNED, PANTS REMOVED AND PLACED IN SAH BAG. STANDING WEIGHT OBTAINED. PT TRANSFER SELF TO BED, SOB WITH ACTIVITY. PT VOID IN URINAL 125ML CLEAR, LIGHT YELLOW URINE. VSS. O2 TITRATED UP TO 4LPM FOR SPO2 80% AFTER ACTIVTY. PT TITRATED BACK DOWN TO 2LPM. TELE#[address], SINUS RHYTHM, 70'S FOR BPM. ADMISSION ASSESSMENT AND PHYSICAL ASSESSMENT COMPLETE. MEAL PROVIDED TO PT PER REQUEST. PT AMBULATES INDEPENTLY TO BATHROOM TO VOID FREQUENTLY. PT ORIENTED TO ROOM, BED AND CALL LIGHT. NO FURTHER REQUESTS AT THIS TIME.
--- NOTE | 2025-09-09 14:59 | NUR ---
CPOX IN PLACE.
[2025-09-09] MEDS ORDERED: ALBUTEROL/IPRATROPIUM 3 ML NEB INH SCH (16:00)
--- NOTE | 2025-09-09 16:11 | NUR ---
Spoke with Jose J. He lives in a house with his . He has 2 steps into the home and 14 steps to the basement. Laundry is downstairs, but his does most of the laundry and head cleaning porter. She also drives and shops. Pt has rails in the bathroom and all steps/stairs. He has a cane, walker, wc, and a shower chair. He is a disabled from [employer] and is 100 % service connected. He does not use all of his benefits as he believes other veterans need them more. He plans on dc to home and his will drive him. He denies any financial or safety concerns. He does get a food box from the [facility], they give this to the homeless in town. No needs from .
[2025-09-09] MEDS ORDERED: ATORVASTATIN 20 MG TAB PO SCH (17:00)
[2025-09-09] MEDS ORDERED: POTASSIUM CHLORIDE 10 MEQ TABCR PO SCH (17:00)
--- NOTE | 2025-09-09 18:02 | NUR ---
PT SITS UP IN BED, EATS DINNER, WATCH TV, NO REQUESTS AT THIS TIME.
--- NOTE | 2025-09-09 18:20 | NUR ---
PATIENT UP TO BATHROOM AND BACK TO BED, SBA FWW. VITALS AND I&O'S DONE AND CHARTED. CALL LIGHT IN REACH. BED ALARM ON. NO FURTHER NEEDS AT THIS TIME.
--- NOTE | 2025-09-09 19:07 | EKG ---
[facility] [address] [facility] [place] [address] Signed Poor data quality, interpretation may be adversely affected Sinus bradycardia with 1st degree AV block with premature atrial complexes Left axis deviation Low voltage QRS Cannot rule out Anterior infarct , age undetermined Abnormal ECG When compared with ECG of 23-AUG-2025 07:29, Sinus rhythm has replaced Atrial fibrillation QT has shortened Confirmed by Muna Olmos MD () on 09/09/2025 7:07:51 PM Electronically Signed By: MUNA OLMOS MD 09/09/25 1907 PATIENT NAME: FRANCIS AGRAWAL Electrocardiogram DATE OF : 47 PHYSICIAN: MUNA OLMOS MD REPORT #: [id number] REPORT IS CONFIDENTIAL AND NOT TO BE RELEASED WITHOUT AUTHORIZATION
--- NOTE | 2025-09-09 19:09 | EKG ---
[facility] [address] [facility] [place] [address] Signed Sinus rhythm with sinus arrhythmia with 1st degree AV block with occasional premature ventricular complexes Left axis deviation Low voltage QRS Abnormal ECG When compared with ECG of 09-SEP-2025 09:05, Significant changes have occurred premature ventricular complexes are again present Confirmed by Muna Olmos MD () on 09/09/2025 7:09:16 PM Electronically Signed By: MUNA OLMOS MD 09/09/25 1909 PATIENT NAME: FRANCIS AGRAWAL Electrocardiogram DATE OF : 47 PHYSICIAN: MUNA OLMOS MD REPORT #: [id number] REPORT IS CONFIDENTIAL AND NOT TO BE RELEASED WITHOUT AUTHORIZATION
--- NOTE | 2025-09-09 19:28 | NUR ---
RECEIVED REPORT FROM EDY EVANS. PT LAYING IN BED WATCHING TV, REQUESTING LIGHTS TO BE TURNED OFF, DONE. NO OTHER NEEDS AT THIS TIME, CALL LIGHT WITHIN REACH.
--- NOTE | 2025-09-09 20:35 | NUR ---
PTS BP 104/72, MANUAL BP IN THE 90S/60S. MD CALLED AND STATED TO HOLD BP MEDS AND THAT HE WILL COME TO THE FLOOR AND ASSESS PT.
[2025-09-09] MEDS ORDERED: MELATONIN 3 MG TAB PO PRN (21:00)
--- NOTE | 2025-09-09 21:19 | NUR ---
MD OLMOS ON FLOOR. VERBAL ORDERS RECEIVED. VERIFIED USING REPEAT BACK METHOD.
[2025-09-09] MEDS ORDERED: ISOSORBIDE MONONITRATE 20 MG TAB PO ONE (23:30)
--- NOTE | 2025-09-09 23:43 | NUR ---
PT CALLED REPORTING NASAL CANNULA OUT OF PLACE, FIXED. O2 WITHIN RANGE, NO OTHER NEEDS AT THIS TIME, CALL LIGHT WITHIN REACH, ICE WATER REFILLED.
[2025-09-10] VITALS (10 sets, daily range): BP systolic 104–143; BP diastolic 57–92
--- NOTE | 2025-09-10 02:05 | NUR ---
PATIENT ASSISTED TO THE BATHROOM W/ FWW AND SBA. PT BACK TO BED. BLE ELEVATED WITH PILLOWS. PT ON 3L NC SATTING AT 92%. HEMATOLOGIST ONCOLOGIST AT BEDSIDE TAKING VITALS, NO OTHER NEEDS AT THIS TIME. CALL LIGHT WITHIN REACH.
--- NOTE | 2025-09-10 03:35 | NUR ---
PT LAYING IN BED EYES CLOSED, UNLABORED BREATHING, CPOX ON AT BEDSIDE. 3L NC, NO NEEDS AT THIS TIME, CALL LIGHT WITHIN REACH.
--- NOTE | 2025-09-10 05:10 | NUR ---
VS TAKEN, STANDING WEIGHT, LUNGS ASSESSED, PT REPORTS NO NEEDS AT THIS TIME. CALL LIGHT WITHIN REACH, PT REPOSITIONED WITH PILLOWS UNDER BLE AND BEHIND BACK IN HIGH REED POSITION.
[2025-09-10 05:14] LABS: BASOPHILS 0.2 % (0.2-1.2); EOSINOPHILS 0.7 % (0.8-7.0); LYMPHOCYTES 11.6 % (21.8-53.1); MCH 33.3 PG (25.7-32.2); MCHC 33.0 g/dL (32.3-36.5); MCV 100.7 fL (79.0-92.2); MONOCYTES 10.7 % (5.3-12.2); NEUTROPHILS 76.5 % (34.0-67.9); RBC 4.21 M/uL (4.63-6.08)
[2025-09-10 05:29] LABS: ALT (SGPT) 25.0 U/L (14-59); AST (SGOT) 21.0 U/L (15-37); GLOMERULAR FILTRATION RATE,EST 31.0 mL/min (>60); PROTEIN, TOTAL 6.2 g/dL (6.4-8.2); UREA NITROGEN 28.0 mg/dL (7-18)
--- NOTE | 2025-09-10 07:18 | NUR ---
Pt report received from EDY Vela and EDY Ellsworth. Pt is resting supine in bed, c/o feeling the need to blow his nose. Pt provided with a warm wash cloth and encouraged to dab, gently, at his nares to remove the crusted blood there. Pt states that his nose keeps bleeding but I do not see any bright red blood at this time. White board updated. Side rails up x4. Call light in reach.
--- NOTE | 2025-09-10 08:10 | NUR ---
In with pt for assessment, med administration, and vital signs. Pt work of breathing is labored, he is breathing evenly but shallow. Abdomen distended. Pt was able to stand and void into urinal unassisted and without increased shortness of breath. Pt respirations are approximately 32, however, as he settles, they decrease to 24. Pt provided with fresh iced water, milk, hot coffee with creamer. Side rails up x3, call light in reach. Bedside table and personal belongings in reach. Pt denies further needs at this time. OKSANA Loyd in with patient.
[2025-09-10] MEDS ORDERED: TAMSULOSIN HCL 0.4 MG CAP PO SCH (09:00)
[2025-09-10] MEDS ORDERED: FUROSEMIDE 40 MG/4 ML VIAL IV SCH (09:00)
[2025-09-10] MEDS ORDERED: AMLODIPINE BESYLATE 5 MG TAB PO SCH (09:00)
--- NOTE | 2025-09-10 09:08 | NUR ---
PATIENT IN CHAIR AT THIS TIME. PACKAGING SUPERVISOR ASSISTED PATIENT WITH URINAL AND THEN ASSISTED PATIENT TO CHAIR. THIS PACKAGING SUPERVISOR CHANGED PATIENTS LINENS. CALL LIGHT WITHIN REACH, NO FURTHER NEEDS AT THIS TIME.
--- NOTE | 2025-09-10 09:46 | NUR ---
ALERT IN RECLINER. STATES HE CAN NOT THINK OF ANY CM NEEDS AT THIS TIME, BUT HIS WILL BE IN THIS MORNING AND SHE PROVIDES CARES FOR HIM.
--- NOTE | 2025-09-10 11:12 | NUR ---
Dr. Wagner in with pt. This RN in as well.
[2025-09-10] MEDS ORDERED: PHARMACY RENAL DOSE ADJUSTMENT 1 DOSE MISC PO SCH (12:00)
--- NOTE | 2025-09-10 12:43 | NUR ---
In with pt for med administration. Pt is sitting up in the chair. OKSANA Loyd in room. Pt just returned from using the bathroom. Pt states that "my nose is bleeding again". He dabs a kleenex to the right nares and there is a scant amount of bright red blood on the kleenex. He states he thinks it oozes like this any time he gets up and does any activity (physical therapy had just also been in with the pt not long before this). BLE elevated in the chair. Call light in reach.
--- NOTE | 2025-09-10 13:38 | NUR ---
UR CLINICAL REVIEW: BELEN PHOTOGRAPHIC RESTORER MEETS INPT FOR CHF WITH NEW NEED FOR SUPPLEMENTAL OXYGEN, IV DIUESIS AND SERIAL LABS [facility] INPT 09/09/25 @ 8467 ORDER MATCHES REG CLINICALS FAXED TO [facility] FOR REVIEW DISCHARGE TO HOME WHEN STABLE 09/11/25 DC REVIEW
--- NOTE | 2025-09-10 17:42 | NUR ---
PATIENT IN BED AT THIS TIME. FINANCIAL ANALYSIS MANAGER ASSISTED PATIENT WITH URINAL. CALL LIGHT WITHIN REACH, NO FURTHER NEEDS.
--- NOTE | 2025-09-10 18:00 | NUR ---
AFTER VITALS WERE DONE CHANGED PATIENT'S GOWN AND HE WASHED HIS FACE. CALL LIGHT WITH IN REACH AND HE SIDE TABLE ON THE SIDE OF HIS BED.
--- NOTE | 2025-09-10 19:15 | NUR ---
PT SITTING UP IN CHAIR, REPORTS HE IS GOING TO SLEEP. NO NEEDS AT THIS TIME, CALL LIGHT WITHIN REACH.
--- NOTE | 2025-09-10 20:21 | NUR ---
PATIENT RESTING IN BED WITH EYES CLOSED. RESPIRATIONS EVEN AND UNLABORED. O2 SAT 85-87% ON 2L NC WHILE RESTING. PATIENT TITRATED TO 3L NC AT THIS TIME. NO FURTHER NEEDS. CALL LIGHT IN REACH.
--- NOTE | 2025-09-10 21:52 | EKG ---
[facility] [address] [facility] [place] [address] Signed Sinus rhythm with 1st degree AV block with premature supraventricular complexes and with occasional premature ventricular complexes Low voltage QRS Nonspecific ST abnormality Prolonged QT Abnormal ECG When compared with ECG of 09-SEP-2025 09:12, premature supraventricular complexes are now present Confirmed by Muna Olmos MD () on 09/10/2025 9:52:07 PM Electronically Signed By: MUNA OLMOS MD 09/10/252151 PATIENT NAME: FRANCIS AGRAWAL Electrocardiogram DATE OF : 47 PHYSICIAN: MUNA OLMOS MD REPORT #: [id number] REPORT IS CONFIDENTIAL AND NOT TO BE RELEASED WITHOUT AUTHORIZATION
--- NOTE | 2025-09-10 22:33 | NUR ---
PT ON 2L NC, CPOX AT BEDSIDE. PT LAYING IN BED EYES CLOSED, UNLABORED BREATHING.
--- NOTE | 2025-09-10 23:31 | NUR ---
PT LAYING IN BED, EYES CLOSED, UNLABORED BREATHING. NC AT 2L, CPOX ON AT BEDSIDE, CALL LIGHT WITHIN REACH.
--- NOTE | 2025-09-10 23:42 | NUR ---
PT ASSISTED TO THE BATHROOM W/ FWW AND LTM. PT BACK TO BED, PILLOWS UNDER BLE AND BACK. PT IN HIGH REED POSITION, REPORTS NO OTHER NEEDS AT THIS TIME, CALL LIGHT WITHIN REACH, LIGHTS OFF.
[2025-09-11] VITALS (15 sets, daily range): BP systolic 86–136; BP diastolic 43–108
--- NOTE | 2025-09-11 00:46 | NUR ---
PT LAYING IN BED, EYES CLOSED, UNLABORED BREATHING. NC AT 2L, CPOX ON AT BEDSIDE, TV ON. NO OTHER NEEDS AT THIS TIME, CALL LIGHT WITHIN REACH.
--- NOTE | 2025-09-11 01:45 | NUR ---
VS TAKEN, PT BP IN THE 80S OVER 60S, PT NOT SYMPTOMATIC. MAP OF 65. FINAL INSPECTOR BALANCE WHEEL NOTIFIED, PT REPORTS NO OTHER NEEDS AT THIS TIME, CALL LIGHT WITHIN REACH.
--- NOTE | 2025-09-11 02:21 | NUR ---
CALL PLACED TO MD OLMOS REGARDING PATIENTS BP. NO NEW ORDERS AT THIS TIME.
--- NOTE | 2025-09-11 03:30 | NUR ---
PT LAYING IN BED, WATCHING TV, REQUESTING APPLESAUCE, GIVEN. NO OTHER NEEDS AT THIS TIME, CPOX AT BEDSIDE, 2L NC, CALL LIGHT WITHIN REACH.
--- NOTE | 2025-09-11 04:55 | NUR ---
PT CALLED ASKING TO SIT UP IN CHAIR, TRIAL CONSULTANT AT BEDSIDE ASSISTING PT WITH FWW. NO OTHER NEEDS AT THIS TIME, CALL LIGHT WITHIN REACH.
[2025-09-11 05:29] LABS: BASOPHILS 0.2 % (0.2-1.2); EOSINOPHILS 0.9 % (0.8-7.0); LYMPHOCYTES 15.2 % (21.8-53.1); MCH 33.5 PG (25.7-32.2); MCHC 33.0 g/dL (32.3-36.5); MCV 101.5 fL (79.0-92.2); MONOCYTES 11.3 % (5.3-12.2); NEUTROPHILS 72.0 % (34.0-67.9); RBC 4.12 M/uL (4.63-6.08)
--- NOTE | 2025-09-11 05:41 | NUR ---
PT REPORTS FLANK PAIN, PRN PAIN MED GIVEN, NO OTHER NEEDS AT THIS TIME, PT REPOSITIONED WITH PILLOWS, CALL LIGHT WITHIN REACH.
[2025-09-11 05:45] LABS: ALT (SGPT) 24.0 U/L (14-59); AST (SGOT) 18.0 U/L (15-37); GLOMERULAR FILTRATION RATE,EST 27.0 mL/min (>60); PROTEIN, TOTAL 6.5 g/dL (6.4-8.2); UREA NITROGEN 34.0 mg/dL (7-18)
--- NOTE | 2025-09-11 07:40 | NUR ---
REPORT RECIEVED FROM EDY NOONAN. PATIENT SITTING UP IN HIS CHAIR AND REPORTS 10/10 FLANK PAIN "I'M PASSING THAT KIDNEY STONE!" PRN DOSE OF TRAMADOL ORDERED. PATIENT DENIES A HEAT OR ICE PACK AT THIS TIME. PATIENT IS WITHOUT FURTHER NEEDS AND STATES "I JUST NEED TO BE LEFT ALONE NOW UNTIL THIS MEDICATION STARTS HELPING". CALL LIGHT AND PERSONAL BELONGINGS ARE WITHIN REACH. WHITE BOARD UPDATED.
--- NOTE | 2025-09-11 08:11 | NUR ---
PATIENT MEDICATED PER EMAR. PATIENT IS SITTING UP IN HIS CHAIR EATING BREAKFAST. PATIENT DENIES FURTHER NEEDS AT THIS TIME. PATIENT IS 90% ON 2L NC. CPOX AT BEDSIDE. CALL LIGHT AND PERSONAL BELONGINGS ARE WITHIN REACH.
[2025-09-11] MEDS ORDERED: MORPHINE SULFATE 4 MG/ML VIAL IV PRN (08:30)
--- NOTE | 2025-09-11 09:43 | NUR ---
PATIENT SITTING UP IN HIS CHAIR AND IS WITHOUT ANY NEEDS AT THIS TIME. CALL LIGHT AND PERSONAL BELONGINGS ARE WITHIN REACH.
--- NOTE | 2025-09-11 10:40 | NUR ---
DR OLMOS AT BEDSIDE
--- NOTE | 2025-09-11 10:52 | NUR ---
PATIENT IN CHAIR AT THIS TIME. THIS BULK INTAKE WORKER ASSISTED PATIENT WTH USING THE URINAL. CALL LIGHT WITHIN REACH, NO FURTHER NEEDS AT THIS TIME.
[2025-09-11] MEDS ORDERED: EUCERIN ADVANC454 GM TOP (11:14)
[2025-09-11] MEDS ORDERED: CLOBETASOL PROP15 GM TOP (11:15)
[2025-09-11] MEDS ORDERED: FLUOROURACIL30 GM TOP (11:16)
--- NOTE | 2025-09-11 11:18 | NUR ---
MED REC COMPLETE
--- NOTE | 2025-09-11 11:20 | NUR ---
NEW IV PLACED TO PATIENT'S LEFT FOREARM. PATIENT TOLERATED WELL. PATIENT MEDICATED PER EMAR. GARCIA WITH CASE MANAGEMENT AT BEDSIDE. PATIENT AND HIS IS WITHOUT FURTHER NEEDS AT THIS TIME. CALL LIGHT AND PERSONAL BELONGINGS ARE WITHIN REACH.
--- NOTE | 2025-09-11 12:04 | NUR ---
INTO SEE PATIENT. SPOKE WITH PATIENT AND AT BEDSIDE. PATIENT TEARFUL IT HAS BEEN INCREASINGLY HARDER TO TAKE CARE OF HIM AT HOME. SHE WAS HOPING FOR THE PATIENT TO HAVE A SNF STAY. WAITING FOR PT RECCOMENDATIONS. WOULD LIKE PATIENT TO POTENTIALLY GO TO [facility] IF SO TO STAY CLOSE TO FAMILY. [facility] AND [facility] TO SEE IF THEY CAN GET SOME CAREGIVER SUPPORT AT HOME. [facility] FILLED OUT [facility] TO [facility]. PATIENT TO HAVE SURGERY LATER TODAY.
--- NOTE | 2025-09-11 12:15 | NUR ---
VERBAL ORDER FROM DR OLMOS TO HOLD PATIENT'S 1200 MEDICATION DUE TO PATIENT BEING NPO. MD WITHOUT FURTHER ORDERS.
--- NOTE | 2025-09-11 12:50 | NUR ---
PATIENT RESTING IN HIS CHAIR WITH HIS EYES CLOSED. EVEN AND UNLABORED RESPIRATIONS NOTED. CALL LIGHT AND PERSONAL BELONGINGS ARE WITHIN REACH. PATIENT'S AT BEDSIDE.
--- NOTE | 2025-09-11 13:00 | NUR ---
PATIENT RESTING IN HIS CHAIR WITH HIS EYES CLOSED. EVEN AND UNLABORED RESPIRATIONS NOTED. PATIENT'S AT BEDSIDE READING A BOOK. CALL LIGHT AND PERSONAL BELONGINGS ARE WITHIN REACH.
--- NOTE | 2025-09-11 13:45 | NUR ---
SPOKE WITH CASTILLO AT [facility]. SHE STATES PATIENT IS 100% SERVICE CONNECTED AND WE COULD POTENITALLY GET HIM INTO [place] FOR RAIL CAR WELDER CARE AND THEN FUTURE CAREGIVERS WHEN HE EVENTUALLY GOES HOME WITH . CHART FAXED TO [facility].
--- NOTE | 2025-09-11 14:05 | NUR ---
UR DC REVIEW: CONTINUED NEED FOR INPATIENT MONITORING OF RENAL FUNCTION, UROLOGY CONSULT FOR NEPHROLITHIASIS, HYDRONEPHROSIS AND DANIKA. NPO. STONE EXTRACTION NEEDED. PLAN FOR POTENTIAL PLACEMENT FOR SNF VS SKILLED NURSING CARE WITH [facility] ASSISTANCE. ADD: 09/12-09/13/25 [facility] REFERRAL SENT TO [facility] FOR PLACEMENT ASSISTANCE. NO FURTHER ACTIONS NEEDED.
--- NOTE | 2025-09-11 14:15 | NUR ---
PT IN ROOM WORKING WITH PATIENT.
--- NOTE | 2025-09-11 14:54 | NUR ---
PRE SURGERY CHG [place] COMPLETE. BED LINENS, SOCKS, AND GOWN CHANGED. SCD MACHINE PLACED AT THE BOTTOM OF THE BED.
--- NOTE | 2025-09-11 15:40 | NUR ---
PATIENT SITTING UP IN HIS CHAIR RESTING WITH HIS EYES CLOSED. EVEN AND UNLABORED RESPIRATIONS NOTED. PATIENT'S AT BEDSIDE. CALL LIGHT AND PERSONAL BELONGINGS ARE WITHIN REACH.
--- NOTE | 2025-09-11 16:51 | NUR ---
PATIENT RESTING IN BED WITH HIS AT BEDSIDE. PATIENT DENIES ANY NEEDS AT THIS TIME AND STATES HE IS COMFORTABLE. CALL LIGHT AND PERSONAL BELONGINGS ARE WITHIN REACH.
[2025-09-11] MEDS ORDERED: fentaNYL citrate 100 MCG/2 ML VIAL ONE (17:04)
[2025-09-11] MEDS ORDERED: LIDOCAINE HCL 2% 5 ML SDV ONE (17:04)
[2025-09-11] MEDS ORDERED: ROCURONIUM BROMIDE 50 MG/5 ML SYR ONE (17:04)
[2025-09-11] MEDS ORDERED: SODIUM CHLORIDE 0.9% 20 ML IV ONE (17:54)
[2025-09-11] MEDS ORDERED: TRANEXAMIC ACID 1,000 MG/10 ML AMP ONE (18:36)
[2025-09-11] MEDS ORDERED: SUGAMMADEX SODIUM 200 MG/2 ML ML ONE (18:40)
[2025-09-11] MEDS ORDERED: NALOXONE HCL 0.4 MG/ML VIAL ONE (18:52)
--- NOTE | 2025-09-11 19:13 | NUR ---
09/11/251912 [place],Rosey Lee 190: PATIENT ARRIVED TO PACU AWAKE WITH O2 MASK ON. C/O FEELING LIKE HE HAS TO PEE. PICKARD IN PLACE. PATIENT EDUCATED.
--- NOTE | 2025-09-11 19:30 | NUR ---
RECEIVED REPORT FROM EDY REYNOLDS. PT OFF UNIT, AT BEDSIDE. NO NEEDS AT THIS TIME.
--- NOTE | 2025-09-11 19:45 | NUR ---
RECEIVED REPORT FROM MAINTENANCE MACHINIST. PT VS TAKEN, SCDS ON, IVS SALINE FLUSHED AND SALINE LOCKED PER ORDER. PT ON 3L SIMPLE MASK WITH CPOX ON AT BEDSIDE. NO NEEDS AT THIS TIME, CALL LIGHT WITHIN REACH.
--- NOTE | 2025-09-11 20:22 | NUR ---
CLARIFIED ORDERS WITH MD, NEW TELEPHONE ORDERS PLACED.
[2025-09-11] MEDS ORDERED: OXYCODONE HCL 5 MG TAB PO PRN (20:30)
[2025-09-11] MEDS ORDERED: CEFDINIR 300 MG CAP PO SCH (21:00)
--- NOTE | 2025-09-11 21:40 | NUR ---
VS TAKEN, SCDS ON, CRACKERS AND APPLE JUICE GIVEN. CPOX AT BEDSIDE, 2L SIMPLE MASK, CALL LIGHT WITHIN REACH.
--- NOTE | 2025-09-11 22:56 | NUR ---
MANUAL BP TAKEN: 96/58, PT REPORTS NO SYMPTMS, WILL CONTINUE TO MONITOR. NO NEEDS AT THIS TIME, CALL LIGHT WITHIN REACH.
--- NOTE | 2025-09-11 23:12 | NUR ---
PT REPORTS HE HAS TO URINATE, REMINDED PT THAT HE HAS A CATHETER IN. PT UNDERSTANDS, PICKARD ASSESSED. NO OTHER NEEDS AT THIS TIME, CALL LIGHT WITHIN REACH.
[2025-09-12] VITALS (14 sets, daily range): BP systolic 82–118; BP diastolic 49–70
--- NOTE | 2025-09-12 00:29 | NUR ---
PT CALLED REPORTING HE NEEDS TO USE THE RESTROOM, EDUCATED PT THAT HE HAS A PICKARD IN. PT CHANGED TO NC ON 3L, PT EATING APPLESAUCE. MORE ICE WATER GIVEN, SCDS ON. REPORTS NO PAIN, NO OTHER NEEDS AT THIS TIME, CALL LIGHT WITHIN REACH.
--- NOTE | 2025-09-12 01:40 | NUR ---
VS TAKEN, PT REPORTS NO PAIN, CATHETER ASSESSED. PT REPORTS NO NEEDS AT THIS TIME, CPOX AT BEDSIDE, 3L NC. CALL LIGHT WITHIN REACH.
--- NOTE | 2025-09-12 03:01 | NUR ---
PT CALLED REPORTING TO URINATE, PT EDUCATED HE HAS A PICKARD IN, PT VERBALIZED UNDERSTANDING. CATHETER ASESSSED AND DRAINED. NO OTHER NEEDS AT THIS TIME, CALL LIGTH WITHIN REACH.
[2025-09-12 05:17] LABS: BASOPHILS 0.1 % (0.2-1.2); EOSINOPHILS 1.0 % (0.8-7.0); LYMPHOCYTES 9.6 % (21.8-53.1); MCH 33.3 PG (25.7-32.2); MCHC 32.4 g/dL (32.3-36.5); MCV 103.0 fL (79.0-92.2); MONOCYTES 9.2 % (5.3-12.2); NEUTROPHILS 79.9 % (34.0-67.9); RBC 3.96 M/uL (4.63-6.08)
--- NOTE | 2025-09-12 05:17 | NUR ---
GRIDCAP MACHINE OPERATOR AT BEDSIDE ASSISTING PT TO THE BATHROOM, NO OTHER NEEDS AT THIS TIME.
[2025-09-12 05:33] LABS: ALT (SGPT) 20.0 U/L (14-59); AST (SGOT) 15.0 U/L (15-37); GLOMERULAR FILTRATION RATE,EST 33.0 mL/min (>60); PROTEIN, TOTAL 6.6 g/dL (6.4-8.2); UREA NITROGEN 34.0 mg/dL (7-18)
--- NOTE | 2025-09-12 07:15 | NUR ---
REPORT RECIEVED FROM EDY NOONAN. PATIENT RESTING IN BED WITH HOB ELEVATED. PATIENT IS 90% ON 3L NC. CPOX AT BEDSIDE. PATIENT IS WITHOUT ANY NEEDS AT THIS TIME. CALL LIGHT AND PERSONAL BELONGINGS ARE WITHIN REACH.
--- NOTE | 2025-09-12 07:40 | NUR ---
THIS RN TO PATIENT ROOM, PT REQUESTING A BOOST UP IN BED BREAKFAST TRAY DELIVERED. THIS RN AND OKSANA BELLE ASSISTED. BREAKFAST TRAY SETUP FOR PATIENT. OXYGEN REMAINS IN PLACE WITH NASAL PACKING. PT DENIES ANY OTHER NEEDS AT THIS TIME, CALL LIGHT WITHIN REACH. BED ALARM IN PLACE FOR SAFETY.
--- NOTE | 2025-09-12 08:10 | NUR ---
PATIENT MEDICATED PER EMAR. RT AT BEDSIDE FOR BREATHING TREATMENTS. CALL LIGHT AND PERSONAL BELONGINGS ARE WITHIN REACH.
--- NOTE | 2025-09-12 10:00 | NUR ---
SPOKE WITH AND PATIENT. LET THEM KNOW [facility] ARE WORKING ON GETTING PATIENT APPROVED WITH [facility] AT [facility]. WITH POTENTIAL TO GET PATIENT HOME WITH CAREGIVERS. PATIENT AND AGREEABLE WITH THIS PLAN. [facility] WAITING FOR OPEN BED PENDING ACCEPTANCE.
--- NOTE | 2025-09-12 10:29 | NUR ---
PATIENT'S BP WAS LOW FOR 1000 VITALS. RETAKEN AT 1030 AND CONTINUED TO BE LOW, RN NOTIFIED. TWO SMALL STONES WERE FOUND IN URINE STRAINER AND LEFT FOR RN TO INSPECT. PATIENT REPORTS NO NAUSEA, DIZZINESS, OR PAIN.
--- NOTE | 2025-09-12 10:35 | NUR ---
THERAPY IN ROOM WITH PATIENT AT THIS TIME.
--- NOTE | 2025-09-12 11:30 | NUR ---
DR OLMOS AT BEDSIDE. PATIENT MEDICATED PER EMAR. PATIENT'S AT BEDSIDE. CALL LIGHT AND PERSONAL BELONGINGS ARE WITHIN REACH.
--- NOTE | 2025-09-12 12:00 | NUR ---
PATIENT REPORTING THAT HE NEEDS TO URINATE. PATIENT REMINDED THAT HE HAS A PICKARD AND PATIENT STATES "I KNOW BUT I NEED TO PEE". PICKARD FLUSHED WITH 40ML OF NS, AND FLUSHED WELL. PATIENT REPORTS RELIEF AFTER PICKARD FLUSHED. PATIENT LUNCH TRAY SET UP INFRONT OF PATIENT. PATIENT IS WITHOUT FURTHER NEEDS AT THIS TIME. CALL LIGHT AND PERSONAL BELONGINGS ARE WITHIN REACH.
--- NOTE | 2025-09-12 12:24 | NUR ---
DECREASED O2 TO 2 LPM.
--- NOTE | 2025-09-12 14:52 | NUR ---
PATIENT SITTING UP IN HIS CHAIR WITH HIS EYES CLOSED. EVEN AND UNLABORED RESPIRATIONS NOTED. CALL LIGHT AND PERSONAL BELONGINGS ARE WITHIN REACH.
--- NOTE | 2025-09-12 18:30 | NUR ---
PATIENT SITTING UP IN HIS CHAIR AND DENIES ANY PAIN AT THIS TIME. CALL LIGHT AND PERSONAL BELONGINGS ARE WITHIN REACH. OKSANA DOZIER IN ROOM OBTAINING VITAL SIGNS.
--- NOTE | 2025-09-12 19:16 | NUR ---
RECEIVED REPORT FROM EDY REYNOLDS. PT UP IN RECLINER, DOZING. AWAKENS BRIEFLY, DENIES NEEDS AT THIS TIME. WANTS TO REMAIN IN RECLINER FOR THE TIME BEING. CALL LIGHT WITHIN REACH.
--- NOTE | 2025-09-12 20:35 | NUR ---
Changed lighting for Pt in room. Adjusted NC to properly fit in Pt's nose. No other needs expressed by Pt. Call light left in reach. Bed alarm set.
--- NOTE | 2025-09-12 20:45 | NUR ---
PT CONTINUES UP IN RECLINER, WANTS TO REMAIN THERE FOR THE NIGHT. ORIENTED X 4 BUT FORGETFUL. CHAIR ALARM IN PLACE FOR SAFETY. USES CALL LIGHT APPROPRIATELY. DENIES PAIN. LSC BUT DIM TO BASES. ON 2L O2 VIA N/C. CPOX IN PLACE. HRR, TELEMETRY IN PLACE. PT HAS 1+ BLE EDEMA. [place] HOSE TO BLE. BLE ELEVATED IN RECLINER AND ON PILLOWS. BTA, UNSURE OF LBM. PICKARD IN PLACE, UP PINK W/ FEW CLOTS, PT DENIES SYMPTOMS W/ PICKARD TONIGHT. RHINO ROCKET IN PLACE TO LEFT NARE. LOTION APPLIED TO BACK FOR ITCHINESS. PT HAS SL TO LFA AND RFA, WNL. CALL LIGHT WITHIN REACH.
--- NOTE | 2025-09-12 21:50 | NUR ---
Provided iyer catheter care for Pt and provided new sheet for Pt in chair. No other needs expressed by Pt. Call light left in reach. Bed alarm set.
--- NOTE | 2025-09-12 22:15 | NUR ---
Turned off lights per Pt request. No other needs expressed by Pt. Call light left in reach. Bed alarm set.
--- NOTE | 2025-09-12 22:25 | NUR ---
PT ASLEEP IN HIS RECLINER. APPEARS COMFORTABLE. CHAIR ALARM IN PLACE. CALL LIGHT WITHIN REACH.
[2025-09-13] VITALS (11 sets, daily range): BP systolic 99–130; BP diastolic 51–82
--- NOTE | 2025-09-13 00:28 | NUR ---
Adjusted Pt's pillows and bedding PRN. Scratched Pt's back PRN per Pt request. No other needs expressed by Pt. Call light left in reach. Chair alarm set.
--- NOTE | 2025-09-13 00:28 | NUR ---
PT AWAKE, SLEEPING BETWEEN CARE. OKSANA JONES ASSISTED PT TO REPOSITION AND SCRATCH HIS BACK. NO OTHER NEEDS AT THIS TIME.
--- NOTE | 2025-09-13 01:30 | NUR ---
Emptied Pt's iyer catheter-Strained urine-no findings other than continued bright red blood-colored urine. No other needs expressed by Pt. Call light left in reach. Chair alarm set.
--- NOTE | 2025-09-13 02:35 | NUR ---
Adjusted Pt's pillows PRN. No other needs expressed by Pt. Call light left in reach. Chair alarm set.
--- NOTE | 2025-09-13 03:29 | NUR ---
Adjusted pillows for Pt behind head and under feet as requested. No other needs expressed by Pt. Call light left in reach. Chair alarm set.
--- NOTE | 2025-09-13 03:34 | NUR ---
PT SLEEP IN RECLINER, APPEARS COMFORTABLE.
[2025-09-13 05:11] LABS: BASOPHILS 0.2 % (0.2-1.2); EOSINOPHILS 1.7 % (0.8-7.0); LYMPHOCYTES 14.8 % (21.8-53.1); MCH 33.9 PG (25.7-32.2); MCHC 32.6 g/dL (32.3-36.5); MCV 104.0 fL (79.0-92.2); MONOCYTES 11.4 % (5.3-12.2); NEUTROPHILS 71.5 % (34.0-67.9); RBC 3.78 M/uL (4.63-6.08)
--- NOTE | 2025-09-13 05:25 | NUR ---
Emptied Pt's Lorenz Catheter-Pt's urine was strained with no changes in cranberry red color. Provided warm blanket. No other needs expressed by Pt. Call light left in reach. Chair alarm set. Readjusted pillows PRN.
[2025-09-13 05:29] LABS: ALT (SGPT) 15.0 U/L (14-59); AST (SGOT) 16.0 U/L (15-37); GLOMERULAR FILTRATION RATE,EST 51.0 mL/min (>60); PROTEIN, TOTAL 6.3 g/dL (6.4-8.2); UREA NITROGEN 32.0 mg/dL (7-18)
--- NOTE | 2025-09-13 06:00 | NUR ---
PT UP IN RECLINER, AWAKE. UP FOR STANDING SCALE WEIGHT W/ CGA. PT PROVIDED COFFEE PER REQUEST. NO OTHER NEEDS AT THIS TIME.
--- NOTE | 2025-09-13 06:31 | NUR ---
Scratched Pt's back PRN per Pt's request and adjusted pillows. No other needs expressed by Pt. Call light left in reach. Chair alarm set.
--- NOTE | 2025-09-13 07:05 | NUR ---
REPORT RECEIVED FROM EDY HOWARD. PATIENT SITTING UP IN HIS CHAIR WITH HIS EYES CLOSED. EVEN AND UNLABORED RESPIRATIONS NOTED. CALL LIGHT AND PERSONAL BELONGINGS ARE WITHIN REACH.
--- NOTE | 2025-09-13 08:58 | NUR ---
PATIENT IS SITTING IN CHAIR. VITAL SIGNS, I&OS AND AM CARE WERE DONE. PATIENT WAS SET UP TO BRUSH TEETH. PATIENTS CALL LIGHT IS WITHIN REACH AND NO FURTHER NEEDS AT THIS TIME.
[2025-09-13] MEDS ORDERED: ALBUTEROL SULFATE 0.083% 3 ML VIAL INH PRN (09:30)
--- NOTE | 2025-09-13 11:21 | NUR ---
PATIENT SITTING UP IN HIS CHAIR WITH HIS AT BEDSIDE. NO NEEDS AT THIS TIME. CALL LIGHT AND PERSONAL BELONGINGS ARE WITHIN REACH.
--- NOTE | 2025-09-13 11:39 | NUR ---
PT REPORTED TO OFFSET SECOND PRESS OPERATOR PAIN THE (L) HIP. THIS RN INTO ROOM TO EVALUATE PAIN, PT REPORTS / TO (L) HIP, UPON FURTHER REVIEW, HE STATES IT IS STILL THE AREA IT HAS BEEN WHICH IS THE (L) FLANK, URINE DRAINING BLOODY INTO CATHETER STILL. PRN TYLENOL GIVEN - SEE MAR. PT DENIES ANY OTHER NEEDS AT THIS TIME.
--- NOTE | 2025-09-13 11:45 | NUR ---
MD IN TO SEE PATIENT, ASSISTED PROVIDER IN GETTING SUPPLIES FOR RHINO BALLOON, DEFLATING, INSTILLED NS INTO LEFT NARE AND ALLOWING PATIENT TO LAY BACK IN CHAIR AT THIS TIME. PROVIDER WILL SLOWLY START REMOVING THE RHINO PACKING. PT TOLERATED WELL. PRESENT IN THE ROOM, NO ISSUES.
--- NOTE | 2025-09-13 13:05 | NUR ---
DR OLMOS AT BEDSIDE AND REMOVED RHINOROCKET. PATIENT TOLERATED WELL. BLEEDING CONTROLLED. PATIENT'S FACE/NARES CLEANED UP. PATIENT EDUCATED NOT TO BLOW HIS NOSE, PATIENT WITH VERBAL UNDERSTANDING. PATIENT AND HIS AT WITHOUT FURTHER NEEDS AT THIS TIME. CALL LIGHT AND PERSONAL BELONGINGS ARE WITHIN REACH.
--- NOTE | 2025-09-13 14:08 | NUR ---
PATIENT WAS ASSISTED TO THE SHOWER WITH FWW. PATIENT WAS ASSISTED WITH HARD TO REACH AREAS, PATIENT TOLERATED WELL. PERICARE AND CATHETER CARE WAS DONE. LINEN WAS CHANGED AND LOTION WAS APPLIED TO LOWER LEGS. PATIENT SHAVED HIS FACE. PATIENTS CALL LIGHT IS WITHIN REACH AND NO FURTHER NEEDS AT THIS TIME.
--- NOTE | 2025-09-13 15:15 | NUR ---
PATIENT SITTING UP IN HIS CHAIR AND IS WITHOUT ANY NEEDS AT THIS TIME. CALL LIGHT AND PERSONAL BELONGINGS ARE WITHIN REACH.
--- NOTE | 2025-09-13 16:23 | NUR ---
PATIENT IS IN THE CHAIR. PATIENTS CALL LIGHT IS WITHIN REACH AND NO FURTHER NEEDS AT THIS TIME.
--- NOTE | 2025-09-13 17:36 | NUR ---
PATIENT IS LAYING IN CHAIR. PATIENTS VITAL SIGNS AND I&OS WERE DONE. PATIENTS CALL LIGHT IS WITHIN REACH AND NO FUTHER NEEDS AT THIS TIME.
--- NOTE | 2025-09-13 19:35 | NUR ---
RECEIVED REPORT FROM EDY REYNOLDS. PT UP IN RECLINER RESTING, REPORTS WANTING TO STAY IN RECLINER FOR NOC. CHAIR ALARM IN PLACE. CALL LIGHT WITHIN REACH.
[2025-09-13] MEDS ORDERED: ARFORMOTEROL TARTRATE 15 MCG/2 ML VIAL INH SCH (20:00)
--- NOTE | 2025-09-13 20:15 | NUR ---
PT UP IN RECLINER, DENIES PAIN. ORIENTED X 4, ONLY SLIGHTLY FORGETFUL AT TIMES. VSS. USES CALL LIGHT APPROPRIATELY. CHAIR ALARM IN PLACE FOR SAFETY. LSC DIM TO BASES, CPOX IN PLACE. O2 SATS 88% ON CPOX, PT DID DB & C X 10 AND O2 SATS 91%. 2L N/C IN PLACE. HRR. 1+ EDEMA TO BLE, CAMDEN HOSE REAPPLIED TO BLE. BTA, PT REPORTS CONSTIPATION, HS BOWEL MEDS ADMINISTERED PER EMAR. PICKARD CATH W/ PINK UO, NO CLOTS NOTED. OKSANA VARGAS PERFORMED PICKARD CARE AND STRAINED UO-NO STONES. LFA AND RH SL WNL. BLE ELEVATED. CALL LIGHT WITHIN REACH.
[2025-09-13] MEDS ORDERED: SENNOSIDES/DOCUSATE 1 EA TAB PO SCH (21:00)
[2025-09-13] MEDS ORDERED: POLYETHYLENE GLYCOL 3350 1 PACKET PO SCH (21:00)
--- NOTE | 2025-09-13 22:33 | NUR ---
PT ASLEEP IN RECLINER, APPEARS COMFORTABLE. 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
--- NOTE | 2025-09-14 00:11 | NUR ---
PT ASLEEP, APPEARS COMFORTABLE.
--- NOTE | 2025-09-14 02:16 | NUR ---
PT SLEEPING SOUNDLY IN RECLINER.
[2025-09-14 05:07] LABS: BASOPHILS 0.2 % (0.2-1.2); EOSINOPHILS 3.7 % (0.8-7.0); LYMPHOCYTES 18.3 % (21.8-53.1); MCH 33.9 PG (25.7-32.2); MCHC 32.9 g/dL (32.3-36.5); MCV 102.9 fL (79.0-92.2); MONOCYTES 11.3 % (5.3-12.2); NEUTROPHILS 66.3 % (34.0-67.9); RBC 3.84 M/uL (4.63-6.08)
--- NOTE | 2025-09-14 05:23 | NUR ---
PT SLEEPING SOUNDLY IN RECLINER. APPEARS COMFORTABLE.
[2025-09-14 05:30] LABS: ALT (SGPT) 22.0 U/L (14-59); AST (SGOT) 22.0 U/L (15-37); GLOMERULAR FILTRATION RATE,EST 55.0 mL/min (>60); PROTEIN, TOTAL 6.4 g/dL (6.4-8.2); UREA NITROGEN 24.0 mg/dL (7-18)
--- NOTE | 2025-09-14 06:29 | NUR ---
PT AWAKE, REPORTS SLEEPING WELL AND FEELING GOOD THIS AM. PICKARD W/ PINK UO AND SOME SEDIMENT. UP OUT OF RECLINER FOR STNADING WEIGHT WITH OKSANA CHRISTENSEN.
[2025-09-14 06:36] VITALS: BP 135/81
--- NOTE | 2025-09-14 06:40 | NUR ---
GAVE PT WARM WASH CLOTH FOR FACE, AM CARE. TOOK OUT TRASH AND RN GOT PT FRESH COFFEE. TOOK OUT ALL TRASH AND FIXED PT'S PILLOWS BEHIND BACK AND HEAD. CALL LIGHT WITHIN REACH. PT SITTING IN CHAIR.
[2025-09-14 06:45] VITALS: BP 135/81
--- NOTE | 2025-09-14 07:20 | NUR ---
VERBAL REPORT RECEIVED FROM EDY HOWARD. PT IS AWAKE AND ALERT IN RECLINER. CALL LIGHT IN REACH.
--- NOTE | 2025-09-14 07:20 | NUR ---
VERBAL REPORT RECEIVED FROM EDY HOWARD.
--- NOTE | 2025-09-14 07:59 | NUR ---
PT RESTS IN RECLINER, AWAKE. REQUESTS TO STAND. PT ASSISTED TO STAND WITH FWW. PT STATES, "MY BACK IS ITCHY." GONZALO, EDY SHIFT CHARGE SECOND RN SKIN CHECK IN ROOM TO ASSESS. DR. OLMOS NOTIFIED, EVALUATES PT. PT BACK TO RECLINER, CHAIR ALARM ON, CALL LIGHT AND BELONGINGS IN REACH.
[2025-09-14 08:22] LABS: GLOMERULAR FILTRATION RATE,EST 62.0 mL/min (>60); UREA NITROGEN 23.0 mg/dL (7-18)
[2025-09-14 08:58] VITALS: BP 143/93
[2025-09-14] MEDS ORDERED: TRIAMCINOLONE 0.1% 15 GM TUBE TOP SCH (09:00)
--- NOTE | 2025-09-14 09:35 | NUR ---
PT RECEIVES BREATHING TREATMENT AND EVALUATION BY RT, RT IN ROOM.
[2025-09-14] MEDS ORDERED: SODIUM CHLORIDE 45 ML BTL NAS PRN (09:45)
[2025-09-14 13:11] VITALS: BP 125/67
--- NOTE | 2025-09-14 13:29 | NUR ---
PT UP TO TOILET VIA 1 PERSON ASSIST WITH FWW. YSABEL ALANIS.
--- NOTE | 2025-09-14 16:58 | NUR ---
ANSWERED PATIENT CALL LIGHT FOR ASSISTANCE WITH THE URINAL. PATIENT ABLE TO STAND WTIH 1PA FWW. URINAL EMPTIED, PATENT SITTING IN THE RECLINER, FEET ELEVATED, CHAIR ALARM SET. DINNER SET UP. PATIENT DENIES FURTHER NEEDS AT THIS TIME. CALL LIGHT IN REACH.
--- NOTE | 2025-09-14 17:22 | NUR ---
PT TOLERATES DINNER WELL. REMAINS ON 3LPM O2 NC, SPO2 93%. WAFFLE CUSHION IN PLACE UNDER PATIENT IN RECLINER.
[2025-09-14 18:15] VITALS: BP 143/85
[2025-09-14 20:25] VITALS: BP 134/74
--- NOTE | 2025-09-14 20:43 | NUR ---
PATIENT RESTING IN RECLINER ALERT AND ORIENTED, HE REPORTS HIS NOSE IS ITCHY AND HE FEELS LIKE HE NEEDS TO SNEEZE, HS MEDICATIONS ADMINISTERED, RX CREAM APPLIED TO BACK RASH, NS SPRAY USED TO MOISTEN NARES, PATIENT REPORTS IT FEELS BETTER AFTER. ASSESSMENT COMPLETE. PATIENT REPORTS NO OTHER NEEDS, CALL LIGHT IN REACH. HE REPORTS NO PAIN OR NAUSEA.
[2025-09-15] VITALS (7 sets, daily range): BP systolic 103–179; BP diastolic 68–88
--- NOTE | 2025-09-15 02:17 | NUR ---
PATIENT SLEEPS INTERMITTENLY, THEN USES CALL LIGHT FREQUESNTLY WHILE AWAKE FOR SMALL ADJUSTMENTS IN RECLINER AND BLANKETS ADJUSTED.
[2025-09-15 05:19] LABS: BASOPHILS 0.2 % (0.2-1.2); EOSINOPHILS 3.6 % (0.8-7.0); LYMPHOCYTES 19.8 % (21.8-53.1); MCH 33.6 PG (25.7-32.2); MCHC 32.7 g/dL (32.3-36.5); MCV 102.9 fL (79.0-92.2); MONOCYTES 11.8 % (5.3-12.2); NEUTROPHILS 64.4 % (34.0-67.9); RBC 3.84 M/uL (4.63-6.08)
--- NOTE | 2025-09-15 05:30 | NUR ---
PATIENT HAS SLEPT MINIMALLY OVER SHIFT, APPROX 3 HOURS AT LONGEST INTERVAL. HE HAS DENIES PAIN OR NAUSEA. NO NEW CONCERNS.
[2025-09-15 05:42] LABS: ALT (SGPT) 23.0 U/L (14-59); AST (SGOT) 22.0 U/L (15-37); GLOMERULAR FILTRATION RATE,EST 60.0 mL/min (>60); PROTEIN, TOTAL 6.4 g/dL (6.4-8.2); UREA NITROGEN 22.0 mg/dL (7-18)
--- NOTE | 2025-09-15 07:20 | NUR ---
VERBAL REPORT RECEIVED FROM EDY MATIAS. PT RESTS IN RECLINER WITH EYES CLOSED, RESP EVEN AND UNLABORED. CHAIR ALARM ON.
--- NOTE | 2025-09-15 09:08 | NUR ---
CHART UPDATES SENT TO [facility] AND KATIE LOCKETT.
--- NOTE | 2025-09-15 09:50 | NUR ---
INTO SEE PATIENT AND . EXPLAINED TO THEM [facility] DOES NOT HAVE BEDS HOPEFULLY TOMORROW. SENT CHART ALSO TO KATIE IN [place]. PENDING AT BOTH FACILITY. MARIA DOLORES [place] JOURNEYMAN PIPE FITTER AWARE.
[2025-09-15] MEDS ORDERED: FUROSEMIDE 40 MG/4 ML VIAL IV SCH (10:05)
--- NOTE | 2025-09-15 14:56 | NUR ---
patient completed his imm for discharge. filling out survery now.
[2025-09-15] MEDS ORDERED: predniSONE 20 MG TAB PO SCH (15:00)
--- NOTE | 2025-09-15 17:30 | NUR ---
PT REPORTS NASAL DRYNESS, RECEIVES NASAL MOISTURIZING SPRAY IN EACH NARE ORDERED, SEE EMAR.
--- NOTE | 2025-09-15 19:34 | NUR ---
REPORT RECEIVED FROM DAY SHIFT RN. PT IN RECLINER ALERT AND ORIENTED. DENIES NEEDS. WHITE BOARD UPDATED. CALL LIGHT IN REACH. CHAIR ALARM FOR SAFETY.
--- NOTE | 2025-09-15 22:39 | NUR ---
EVENING ASSESSMENT COMPLETE. SCHEDULED MEDS ADMIN PER EMAR. PT DENIES PAIN OR NAUSEA. DENIES SOB. OXYGEN TITRATED TO 2L/NC. SpO2 LOW 90'S. LUNGS CLEAR/DIM THROUGHOUT. IV IN LEFT FOREARM LEAKING. DC'D WNL. TIP INTACT. NEW 22G PLACED IN RIGHT FOREARM X 1 ATTEMPT. PT NANCY WELL. PT DENIES QUESTIONS OR CONCERNS. CALL LIGHT IN REACH. CHAIR ALARM FOR SAFETY.
--- NOTE | 2025-09-15 23:26 | NUR ---
PT IN RECLINER RESTING WITH EYES CLOSED. RESPIRATIONS EVEN. CALL LIGHT IN REACH.
[2025-09-16] VITALS (8 sets, daily range): BP systolic 141–156; BP diastolic 78–93
--- NOTE | 2025-09-16 01:08 | NUR ---
CALL LIGHT ANSWERED. SBA TO VOID IN URINAL. BACK TO RECLINER. CLOTH PROVIDED TO WASH HANDS. BLE ELEVATED IN RECLINER. NO FURTHER NEEDS. CALL LIGHT IN REACH.
--- NOTE | 2025-09-16 02:56 | NUR ---
PT RESTING IN RECLINER WITH EYES CLOSED. BLE ELEVATED. RESPIRATIONS EVEN. CALL LIGHT IN REACH.
[2025-09-16 05:22] LABS: BASOPHILS 0.1 % (0.2-1.2); EOSINOPHILS 0.1 % (0.8-7.0); LYMPHOCYTES 10.4 % (21.8-53.1); MCH 33.8 PG (25.7-32.2); MCHC 33.8 g/dL (32.3-36.5); MCV 99.8 fL (79.0-92.2); MONOCYTES 7.3 % (5.3-12.2); NEUTROPHILS 81.8 % (34.0-67.9); RBC 4.00 M/uL (4.63-6.08)
[2025-09-16 05:40] LABS: ALT (SGPT) 27.0 U/L (14-59); AST (SGOT) 22.0 U/L (15-37); GLOMERULAR FILTRATION RATE,EST 70.0 mL/min (>60); PROTEIN, TOTAL 6.7 g/dL (6.4-8.2); UREA NITROGEN 21.0 mg/dL (7-18)
--- NOTE | 2025-09-16 05:48 | NUR ---
LAB IN FOR MORNING DRAW. VS AND I&O OBTAINED. DAILY WEIGHT OBTAINED. ASSESSMENT UNCHANGED. NO FURTHER NEEDS. CALL LIGHT IN REACH.
--- NOTE | 2025-09-16 08:00 | NUR ---
REPORT RECEIVED FROM TIFFANIE SNOW. PATIENT IN CHAIR, CALL LIGHT IN REACH.
--- NOTE | 2025-09-16 08:50 | NUR ---
Pts in the room. UPdated they have a bed open at [place]. Dr. mirian Lux will be ready for dc tomorrow. is delighted there is a bed in [place]. I will contact Cyndee and set up a time. would like pt to go per eleuterio and I will schedule. Called Linda at [facility] and let her know this pt has changed their minds and would like to go to [place]. I then called [facility] and left a message for Eliana at the [facility] for this pt will go to [place] tomorrow around 9 am.
--- NOTE | 2025-09-16 08:56 | NUR ---
PATIENT IN CHAIR, AT BEDSIDE. VITAL SIGNS AND I AND O COMPLETE. SCHEDULED MEDICATIONS ADMINISTERED. ASSESMENT COMPLETE. PATIENT DENIES CONCERNS.
--- NOTE | 2025-09-16 09:32 | NUR ---
PATIENT IN CHAIR, ALARM ON. CALL LIGHT AND PERSONAL BELONGINGS IN REACH. PATIENT DENIES CONCERNS. AT BEDSIDE.
--- NOTE | 2025-09-16 10:15 | NUR ---
PATIENT WASHED THEIR FACE, BRUSHED THEIR TEETH, AND SHAVED WITH SBA FROM THIS ADJUNCT INSTRUCTOR IN ECONOMICS AND [facility] STUDENT. PATIENT IS SITTING IN THEIR RECLINER WITH CHAIR ALARM SET AND CALL LIGHT AND PERSONAL ITEMS WITHIN REACH. NO OTHER CARES WERE REQUESTED.
--- NOTE | 2025-09-16 11:04 | NUR ---
PATIENT AMBULATING THE HALLS WITH PHYSICAL THERAPY.
--- NOTE | 2025-09-16 11:17 | NUR ---
WC van scheduled for tomorrow at 9 am for pt to transport to [facility]. The transport will continuous pickling line pickler a wc from [facility].
--- NOTE | 2025-09-16 12:27 | NUR ---
PATIENT IN CHAIR, CALL LIGHT IN REACH. LUNCH AT BEDSIDE.
--- NOTE | 2025-09-16 13:09 | NUR ---
HELPING NURSE, PATIENT IN CHAIR, ROOM CLEANED UP. PATIENT DENIES ANY CARES AT THIS TIME. PATIENT IS GOING TO REST, SCDS ON, LEGS UP IN CHAIR. PATIENT HAS BELONGINGS ON BEDSIDE TABLE.
--- NOTE | 2025-09-16 13:23 | NUR ---
PATIENT IN CHAIR, CALL LIGHT AND PERSONAL BELONGINGS IN REACH. PATIENT DENIES CONCERNS AT THIS TIME.
--- NOTE | 2025-09-16 14:09 | NUR ---
PATIENT IN CHAIR. EYES CLOSED, CHEST RISE EVEN AND UNLABORED. CALL LIGHT AND PERSONAL BELONGINGS IN REACH.
--- NOTE | 2025-09-16 14:42 | NUR ---
PATIENT IN CHAIR. PATIENT PROVIDED WITH FRESH ICE WATER AND COFFEE AT HIS REQUEST. CALL LIGHT AND PERSONAL BELONGINGS IN REACH. PATIENT DENIES CONCERNS AT THIS TIME.
--- NOTE | 2025-09-16 14:53 | NUR ---
PATIENT INDEPENDENTLY BRUSHED THEIR TEETH WITH SBA TO THE BATHROOM. PATIENT RETURNED TO THE RECLINER. SCD'S REAPPLIED TO LEGS. CALL LIGHT AND PERSONAL ITEMS ARE WITHIN REACH.
--- NOTE | 2025-09-16 15:29 | NUR ---
In pts room to do CHF educations. Pt up in bedside chair. Education completed. Pt has knowledge of chf. Verbalized understanding. No questions at this time. Pt aware that I will return to room if he has any other questions.
--- NOTE | 2025-09-16 16:18 | NUR ---
PATIENT IN CHAIR, CALL LIGHT AND PERSONAL BELONGINGS IN REACH. TIDIED PATIENT'S SIDE TABLE AT HIS REQUEST. PATIENT DENIES FURTHER CONCERNS.
--- NOTE | 2025-09-16 16:53 | NUR ---
PATIENT IN CHAIR. SCHEDULED MEDICATION ADMINISTERED. CALL LIGHT AND PERSONAL BELONGINGS IN REACH. PATIENT DENIES CONCERNS.
--- NOTE | 2025-09-16 18:33 | NUR ---
PATIENT IN CHAIR, CALL LIGHT AND PERSONAL BELONGINGS IN REACH.
--- NOTE | 2025-09-16 19:25 | NUR ---
RECEIVED REPORT FROM EDY CANNON. PATIENT SITTING UP IN BED, REPORTS TO NEEDS AT THIS TIME. CALL LIGHT WITHIN REACH, WHITEBOARD UPDATED.
--- NOTE | 2025-09-16 20:40 | NUR ---
PT SITTING UP IN CHAIR, VS TAKEN, NO C/O PAIN, 1L NC, CPOX/SCDS ON. FRESH WATER GIVEN, NO OTHER NEEDS AT THIS TIME, CALL LIGHT WITHIN REACH.
--- NOTE | 2025-09-16 21:40 | NUR ---
PT SITTING UP IN BED WATCHING TV, NO NEEDS AT THIS TIME, CALL LIGHT WITHIN REACH.
--- NOTE | 2025-09-16 23:13 | NUR ---
PT LAYING IN CHAIR, EYES CLOSED, UNLABORED BREATHING. 1L NC WITH CPOX AT BEDSIDE, SATS AT 88. CALL LIGHT WITHIN REACH.
--- NOTE | 2025-09-17 00:45 | NUR ---
PT ASSISTED TO USE THE URINAL, PT BACK TO CHAIR WITH CPOX, SCDS, ADN 1L NC ON. NO OTHER NEEDS REPORTED, CHAIR ALARM ON, CALL LIGHT WITHIN REACH.
--- NOTE | 2025-09-17 02:33 | NUR ---
PT SITTING UP IN CHAIR, EYES CLOSED, UNLABORED BREATHING. CALL LIGHT WITHIN REACH, SCD/CAMDEN LEIGH ON, CPOX ON AT BEDSIDE/1L NC.
--- NOTE | 2025-09-17 04:01 | NUR ---
PT SITTING UP IN CHAIR, EYES CLOSED, UNLABORED BREATHING, CALL LIGHT WITHIN REACH. CPOX ON AT BEDSIDE, 1LNC WITH SATS AT 91.
[2025-09-17 04:40] VITALS: BP 150/87
[2025-09-17 04:57] VITALS: BP 150/87
--- NOTE | 2025-09-17 05:24 | NUR ---
PT SITTING UP IN CHAIR WATCHING TV. CALL LIGHT WITHIN REACH, COFFEE GIVEN, NO OTHER NEEDS AT THIS TIME.
[2025-09-17 05:47] LABS: GLOMERULAR FILTRATION RATE,EST 70.0 mL/min (>60); UREA NITROGEN 24.0 mg/dL (7-18)
[2025-09-17 06:03] LABS: BASOPHILS 0.2 % (0.2-1.2); EOSINOPHILS 0.8 % (0.8-7.0); LYMPHOCYTES 17.1 % (21.8-53.1); MCH 33.6 PG (25.7-32.2); MCHC 33.8 g/dL (32.3-36.5); MCV 99.3 fL (79.0-92.2); MONOCYTES 9.9 % (5.3-12.2); NEUTROPHILS 71.9 % (34.0-67.9); RBC 4.08 M/uL (4.63-6.08)
--- NOTE | 2025-09-17 07:06 | NUR ---
REPORT RECEIVED FROM ANITA SNOW. PATIENT IN BED, CALL LIGHT IN REACH.
--- NOTE | 2025-09-17 07:33 | NUR ---
PATIENT IN CHAIR, CALL LIGHT AND PERSONAL BELONGINGS IN REACH. ASSESMENT COMPLETE. PATIENT DENIES CONCERNS.
[2025-09-17] MEDS ORDERED: acetaZOLAMIDE 250 MG TAB PO ONE (07:45)
[2025-09-17] MEDS ORDERED: PREDNISONE20 MG PO (08:09)
[2025-09-17 08:23] VITALS: BP 162/94
--- NOTE | 2025-09-17 08:40 | NUR ---
PATIENT'S DISCHARGE V.S. TAKEN. IV WAS PULLED BY THIS COASTAL/HARBOR DEFENSE OFFICER. PATIENT WAS ASSISTED DRESSING AND SBA TO THE BATHROOM. PATIENT INDEPENDENTLY WASHED THEIR HANDS AND FACE, BRUSHED THEIR TEETH, AND BRUSHED THEIR HAIR. PATIENT RETURNED TO SIT IN THE RECLINER FOR BREAKFAST.
[2025-09-17] MEDS ORDERED: TORSEMIDE 20 MG TAB PO SCH ×2 (09:00)
--- NOTE | 2025-09-17 09:30 | NUR ---
CALLED [facility] TO GIVE VERBAL REPORT. WAS ON HOLD FOR >7 MIN AFTER TRANSFER TO NURSES STATION, WAS THEN FORWARDED TO [facility]. WILL AWAIT RETURN CALL. PATIENT OFF FLOOR WITH WHEELCHAIR VAN AT 0900.
--- NOTE | 2025-09-17 09:58 | NUR ---
RECEIVED RETURN CALL FROM JAN SNOW AT [facility]. GAVE TELEPHONE REPORT, ANSWERED ALL QUESTIONS. SHE VERBALIZED UNDERSTANDING AND DENIES FURTHER QUESTIONS OR CONCERNS AT THIS TIME.
== END 2025-09-17 09:00 | DRG 659 ==
LOC: ED 08:42 → MS 12:27
PROVIDERS: Emergency Medicine; Family Medicine; Student in an Organized Health Care Education/Training Program; Urology; ADMIT Internal Medicine; ATTEND Internal Medicine
PROC: 2Y41X5Z Packing of Nasal Region using Packing Material (ICD-10-PCS; 2025-09-09)
PROC: BT1F1ZZ Fluoroscopy of Left Kidney, Ureter and Bladder using Low Osmolar Contrast (ICD-10-PCS; 2025-09-11)
PROC: 0T778DZ Dilation of Left Ureter with Intraluminal Device, Via Natural or Artificial Opening Endoscopic (ICD-10-PCS; principal; 2025-09-11 15:15)
DX: N13.2 Hydronephrosis with renal and ureteral calculous obstruction (principal); I50.31 Acute diastolic (congestive) heart failure; J96.01 Acute respiratory failure with hypoxia; J44.1 Chronic obstructive pulmonary disease with (acute) exacerbation; I11.0 Hypertensive heart disease with heart failure; I44.0 Atrioventricular block, first degree; Z66 Do not resuscitate; R04.0 Epistaxis; I25.10 Atherosclerotic heart disease of native coronary artery without angina pectoris; N17.9 Acute kidney failure, unspecified; E78.00 Pure hypercholesterolemia, unspecified; L30.9 Dermatitis, unspecified; I27.20 Pulmonary hypertension, unspecified; Z91.148 Patient's other noncompliance with medication regimen for other reason; Z79.01 Long term (current) use of anticoagulants; Z99.81 Dependence on supplemental oxygen; Z79.51 Long term (current) use of inhaled steroids; Z87.891 Personal history of nicotine dependence; Z79.2 Long term (current) use of antibiotics; Z79.899 Other long term (current) drug therapy; Z87.19 Personal history of other diseases of the digestive system; Z87.39 Personal history of other diseases of the musculoskeletal system and connective tissue; Z79.52 Long term (current) use of systemic steroids
CPT/HCPCS: 00910; 30901; 36415; 71045; 71275; 74174; 74450; 80048; 80053; 83735; 83880; 84484; 85025; 85379; 92507; 92523; 93005; 93010; 93306; 94640; 94668; 94762; 94799; 96374; 97110; 97116; 97161; 97165; 97166; 97530; 97535; 99285-25; A9270; C1769; C2617; J1938; J2003; J2270; J2312; J2405; J2704; J3010; J3490; J7512; J7605; Q9958; Q9967

== ENCOUNTER 2025-09-30 09:34 | Day surgery (SDC) | payer OTHER, MEDICARE ==
--- NOTE | 2025-09-28 08:05 | NUR ---
CASE CANCELED PER DR SMITH, CALL PLACED TO [place] TO NOTIFY.
[~2025-09-30] VITALS: Ht 177.8 cm; Wt 103.0 kg
[~2025-09-30 09:34] MED LIST changes: +BROVANA15 MCG/2 M NEB; +CEFAZOLIN SODIUM 2 GM in SODIUM CHLORIDE 0.9% 100 ML IV SCH; +CLOBETASOL PROP15 GM TOP; +CLONIDINE HCL0.2 MG PO; -CLONIDINE HCL0.3 MG PO; +EUCERIN ADVANC454 GM TOP; +FLUOROURACIL30 GM TOP; +IBLOOD GLUCOSE TEST STRIP 1 EA TEST VI PRN; +KETOROLAC TROMETHAMINE 15 MG/ML VIAL IV PRN; +LACTATED RINGER'S 1,000 ML IV SCH; +LIDOCAINE HCL 1% 5 ML SDV INJ ONE; +LIPITOR20 MG PO; +MAGNESIUM OXID400 M1 PO; -MAGNESIUM OXID420 MG PO; +MIRALAX17 GM PO; +MORPHINE SULFATE 4 MG/ML VIAL IV PRN; +PREDNISONE20 MG PO; +SENNA PLUS TAB1 EACH PO; +TAMSULOSIN HCL0.4 MG PO; +TRAMADOL HCL 50 MG TAB PO PRN
[2025-09-30 10:04] VITALS: BP 145/91
[2025-09-30] MEDS ORDERED: HYDROXYZINE HCL25 MG PO (11:28)
[2025-09-30] MEDS ORDERED: MELATONIN10 M2 PO (11:31)
[2025-09-30] MEDS ORDERED: NITROGLYCERIN0.4 MG SL (11:33)
[2025-09-30] MEDS ORDERED: NASAL SPRAY44 M1 NAS (11:35)
[2025-09-30] MEDS ORDERED: STIOLTO RESPIMAT4 GM INH (11:38)
[2025-09-30] MEDS ORDERED: TRIAMCINOLONE A15 G1 TOP (11:40)
[2025-09-30] MEDS ORDERED: ALBUTEROL2.5 MG/3 M NEB (11:43)
[2025-09-30] MEDS ORDERED: SEVOFLURANE 250 ML BTL INH ONE (12:53)
[2025-09-30] MEDS ORDERED: ROCURONIUM BROMIDE 50 MG/5 ML SYR ONE (13:21)
[2025-09-30] MEDS ORDERED: LIDOCAINE HCL 2% 5 ML SDV ONE (13:21)
[2025-09-30] MEDS ORDERED: SUGAMMADEX SODIUM 200 MG/2 ML ML ONE (13:21)
[2025-09-30] MEDS ORDERED: fentaNYL citrate 100 MCG/2 ML VIAL ONE (13:22)
[2025-09-30] MEDS ORDERED: MORPHINE SULFATE 4 MG/ML VIAL IV PRN (13:30)
[2025-09-30] MEDS ORDERED: OXYCODONE/APAP 5/325 TAB PO PRN (13:30)
[2025-09-30] MEDS ORDERED: DEXAMETHASONE SOD PHOS 4 MG/ML VIAL ONE (13:57)
[2025-09-30] MEDS ORDERED: IBLOOD GLUCOSE TEST STRIP 1 EA TEST VI PRN (14:00)
[2025-09-30] MEDS ORDERED: fentaNYL citrate 50 MCG/ML SDV IV PRN (14:00)
[2025-09-30] MEDS ORDERED: NALOXONE HCL 0.4 MG SYR IV PRN (14:00)
--- NOTE | 2025-09-30 14:56 | NUR ---
09/30/25 1456 Sandy Barkley 1426 PT ARRIVED SITTING IN HIGH FOWLERS AND ON 6L VIA MASK WITH ORAL AIRWAY IN PLACE. PT STARTS SWALLOWING AND ORAL AIRWAY REMOVED. 1428 PT GRABBING AT O2 MASK, O2 REMOVED. PT RESTING. 1432 O2 SAT 88%, DEEP BREATHING ENCOURAGED. PT BASELINE 2L O2 AT NIGHT 4L NC PLACED. RN CONTINUES TO ENCOURAGE DEEP BREATING AND COUGHING. 1434 O2 INCREASED TO LOW 90S. 1455 PLAN OF CARE DISCUSSED, PT CONTINUES TO DENY CONCERNS. VSS.
[2025-09-30 15:05] VITALS: BP 137/81
--- NOTE | 2025-09-30 15:10 | NUR ---
1500-PT ARRIVED BACK TO DS ON 4L/NC, AAOX3, ANSWERING QUESTIONS APPROPRIATELY AND ABLE TO MAKE HIS NEEDS KNOWN. REPORT RECEIVED FROM ARMATURE TESTER. SURGICAL SITE VISUALIZED AND NO DRAINAGE NOTED. AT BEDSIDE. VS TAKEN. IV SITE ASSESSED. ALL QUESTIONS ANSWERED. PT PROVIDED WITH ICE WATER AND PUDDING. CALL LIGHT WITHIN PT REACH. BED IN LOW POSITION, WHEELS LOCKED, BILAT RAILS IN PLACE FOR SAFETY. 1510-PT TITRATED FROM 4L/NC TO 2L/NC PER HOME SETTING. SATS REMAIN STABLE AT 94% OR GREATER.
[2025-09-30 16:00] VITALS: BP 129/72
--- NOTE | 2025-09-30 16:40 | NUR ---
1600-INTO PTS ROOM FOR ROUTINE REASSESSMENT. VS TAKEN. IV SITE ASSESSED. REMAINS AT BEDSIDE. PT DENIES PAIN OR NAUSEA WHEN ASKED. PT HAS TOLERATED PO FOOD AND FLUIDS WELL. PT ASSISTED TO EOB WITH URINAL. CALL LIGHT AND AT BEDSIDE. NO DRAINAGE NOTED FROM URETHRA. 1610-PT ABLE TO VOID APPROX 100 ML OF CLR, YELLOW URINE. PT PROVIDED WITH VERBAL AND WRITTEN DC EDUCATION. PRESENT FOR EDUCATION. ALL QUESTIONS ANSWERED. PT AND VERBALIZED UNDERSTANDING. 1630-PT DRESSING FOR DC WITH WIFES ASSISTANCE. CALL LIGHT AND PERSONAL BELONGINGS WITH IN PT REACH. 1640-IV REMOVED. TIP APPEARS INTACT. PRESSURE DRSG APPLIED WITH GAUZE AND COBAN.
--- NOTE | 2025-09-30 16:45 | NUR ---
PT DISCHARGED FROM DS VIA WC TO [facility]. ACCOMPANIED PT. ALL PERSOANL BELONGINGS TAKEN WITH PT.
[2025-10-03 20:58] LABS: CALCULI MASS 19 mg (())
== END 2025-09-30 16:45 | disposition home or self-care (01) ==
LOC: DS 09:34
PROVIDERS: ATTEND Urology
PROC: 0TC78ZZ Extirpation of Matter from Left Ureter, Via Natural or Artificial Opening Endoscopic (ICD-10-PCS; principal; 2025-09-30 11:25)
DX: N13.2 Hydronephrosis with renal and ureteral calculous obstruction (principal); I11.0 Hypertensive heart disease with heart failure; E78.5 Hyperlipidemia, unspecified; I50.9 Heart failure, unspecified; J44.9 Chronic obstructive pulmonary disease, unspecified; Z87.891 Personal history of nicotine dependence; Z79.899 Other long term (current) drug therapy
CPT/HCPCS: 00912; 36415; 74430; 82365; 83880; C1769; J0688; J1100; J2003; J2405; J2704; J3010; J3490; J7121; Q9958

== ENCOUNTER 2025-10-14 16:31 | Emergency (ER) | payer OTHER, MEDICARE ==
[~2025-10-14] VITALS: Ht 177.8 cm; Wt 105.0 kg
[~2025-10-14 16:31] MED LIST changes: +ALBUTEROL2.5 MG/3 M NEB; +ANORO ELLIPTA1 EACH INH; -CEFAZOLIN SODIUM 2 GM in SODIUM CHLORIDE 0.9% 100 ML IV SCH; +HYDROXYZINE HCL25 MG PO; -IBLOOD GLUCOSE TEST STRIP 1 EA TEST VI PRN; -KETOROLAC TROMETHAMINE 15 MG/ML VIAL IV PRN; -LACTATED RINGER'S 1,000 ML IV SCH; -LIDOCAINE HCL 1% 5 ML SDV INJ ONE; +MELATONIN10 M2 PO; -MORPHINE SULFATE 4 MG/ML VIAL IV PRN; +NASAL SPRAY44 M1 NAS; +NITROGLYCERIN0.4 MG SL; -TRAMADOL HCL 50 MG TAB PO PRN; +TRIAMCINOLONE A15 G1 TOP; +ZITHROMAX250 MG PO
--- OUTSIDE RECORDS SUMMARY | 2025-10-14 16:38 | XMS ---
PreManage Notification: FRANCIS AGRAWAL Security Deadener Events No recent Security Events currently on file CRITERIA MET - 6 ED Visits in 6 Months - [facility] - 2 Visits in 30 Days CARE PROVIDERS ILIANA ROBERTS Nurse Practitioner: Family Current PHONE: [phone] FRED ENGLISH Physician Animal Physiology Teacher Higinio PARRA PHONE: [phone] BESS HAMMONDS Family Medicine Current PHONE: Unknown JENS SAMS Nurse Practitioner: Adult Health Higinio [place] PHONE: [phone] Denzel has no Care Guidelines for this patient. Meggan VISIT COUNT (12 MO.) 5 [facility] TOTAL 6 NOTE: Visits indicate total known visits. ED/UCC VISIT TRACKING (12 MO.) 10/14/2025 16:32 [facility] [place] TYPE: Emergency COMPLAINT: - SHORTNESS OF BREATH 10/09/2025 02:00 [facility] TYPE: Emergency DIAGNOSES: - Heart failure, unspecified - Other pulmonary embolism without acute cor pulmonale - hypoxia - Large PE - Shortness of Breath 10/08/2025 15:46 [facility] [place] TYPE: Emergency COMPLAINT: - BREATHING ISSUES 09/09/2025 08:43 [facility] [place] TYPE: Emergency [...] dermatologic procedure INPATIENT VISIT TRACKING (12 MO.) 10/09/2025 02:00 [facility] TYPE: Internal Medicine DIAGNOSES: - Heart failure, unspecified - Other pulmonary embolism without acute cor pulmonale 09/09/2025 12:27 [facility] [place] TYPE: Medical Surgical COMPLAINT: - CHF EXACERBATION, NOSE BLEED, KIDNEY STONE DIAGNOSES: - Acute diastolic (congestive) heart failure - Acute diastolic (congestive) heart failure - Acute kidney failure, unspecified - Acute kidney failure, unspecified - Acute respiratory failure with hypoxia - Acute respiratory failure with hypoxia - Atherosclerotic heart disease of picayune coronary artery without angina pectoris - Atherosclerotic heart disease of picayune coronary artery without angina pectoris - Atrioventricular block, first degree - Atrioventricular block, first degree - Chronic obstructive pulmonary disease with (acute) exacerbation - Chronic obstructive pulmonary disease with (acute) exacerbation - Dependence on supplemental oxygen - Dependence on supplemental oxygen - Dermatitis, unspecified - Dermatitis, unspecified - Do not resuscitate - Do not resuscitate - Epistaxis - Hydronephrosis with renal and ureteral calculous obstruction - Hydronephrosis with renal and ureteral calculous obstruction - Hypertensive heart disease with heart failure - Hypertensive heart disease with heart failure - terminal computer operator (current) use of antibiotics - terminal computer operator (current) use of antibiotics - care home (current) use of anticoagulants - care home (current) use of anticoagulants - terminal computer operator (current) use of inhaled steroids - terminal computer operator (current) use of inhaled steroids - terminal computer operator (current) use of systemic steroids - care home (current) use of systemic steroids - Other half-way (current) drug therapy - Other longshore equipment operator (current) drug therapy - Patient's other noncompliance with medication regimen for other reason - Patient's other noncompliance with medication regimen for other reason - Personal history of nicotine dependence - Personal history of nicotine dependence - Personal history of other diseases of the digestive system - Personal history of other diseases of the digestive system - Personal history of other diseases of the musculoskeletal system and connective tissue - Personal history of other diseases of the musculoskeletal system and connective tissue - Pulmonary hypertension, unspecified - Pulmonary hypertension, unspecified - Pure hypercholesterolemia, unspecified - Pure hypercholesterolemia, unspecified 08/23/2025 11:[address] [facility] [place] TYPE: Observation COMPLAINT: - [facility] DIAGNOSES: - Acute respiratory failure with hypoxia - Body mass index [BMI] 33.0-33.9, adult - Chronic obstructive pulmonary disease with (acute) exacerbation - Do not resuscitate - Heart failure, unspecified - Hypertensive heart disease with heart failure - terminal computer operator (current) use of anticoagulants - Obesity, unspecified - Other half-way (current) drug therapy - Patient's other noncompliance with medication regimen for other reason - Personal history of nicotine dependence - Shortness of breath [email or web address]
[2025-10-14 16:53] LABS: BASOPHILS 0.3 % (0.2-1.2); EOSINOPHILS 2.3 % (0.8-7.0); LYMPHOCYTES 19.0 % (21.8-53.1); MCH 33.5 PG (25.7-32.2); MCHC 32.7 g/dL (32.3-36.5); MCV 102.3 fL (79.0-92.2); MONOCYTES 10.5 % (5.3-12.2); NEUTROPHILS 67.5 % (34.0-67.9); RBC 4.33 M/uL (4.63-6.08)
[2025-10-14] MEDS ORDERED: ELIQUIS5 MG PO (16:54)
[2025-10-14] MEDS ORDERED: ALBUTEROL/IPRATROPIUM 3 ML NEB INH PRN (17:00)
[2025-10-14 17:21] LABS: ALT (SGPT) 80.0 U/L (14-59); AST (SGOT) 63.0 U/L (15-37); GLOMERULAR FILTRATION RATE,EST 51.0 mL/min (>60); PROTEIN, TOTAL 7.4 g/dL (6.4-8.2); UREA NITROGEN 31.0 mg/dL (7-18)
[2025-10-15] MEDS ORDERED: HEParin SOD (PORCINE) 5,000 UNIT/ML SYR IV ONE (02:00)
[2025-10-15] MEDS ORDERED: HEPARIN SOD,PORK IN 0.45% NACL 500 ML IV SCH ×2 (02:00→02:45)
[2025-10-15 02:36] LABS: INR 1.07 (0.80-1.30); PROTIME 13.2 Sec (11.2-14.2)
--- NOTE | 2025-10-15 17:47 | EKG ---
[facility] [address] [place] [address] Signed Sinus rhythm with premature supraventricular complexes and with occasional premature ventricular complexes Low voltage QRS Cannot rule out Anterior infarct , age undetermined Prolonged QT Abnormal ECG When compared with ECG of 08-OCT-2025 16:50, premature ventricular complexes are now present premature supraventricular complexes are now present Minimal criteria for Anterior infarct are now present Confirmed by Estrellita Guzman DO ([id number]) on 10/15/2025 5:47:07 PM Electronically Signed By: ESTRELLITA GUZMAN DO 10/15/25 1747 PATIENT NAME: FRANCIS AGRAWAL Electrocardiogram DATE OF : 47 PHYSICIAN: ESTRELLITA GUZMAN DO REPORT #: [id number] REPORT IS CONFIDENTIAL AND NOT TO BE RELEASED WITHOUT AUTHORIZATION
== END 2025-10-15 04:58 | disposition short-term general hospital (02) ==
LOC: ED 16:31
PROVIDERS: Emergency Medicine; Family Medicine
DX: I26.99 Other pulmonary embolism without acute cor pulmonale (principal); J96.91 Respiratory failure, unspecified with hypoxia; I11.0 Hypertensive heart disease with heart failure; I50.9 Heart failure, unspecified; J44.9 Chronic obstructive pulmonary disease, unspecified; Z79.899 Other long term (current) drug therapy; Z87.891 Personal history of nicotine dependence
CPT/HCPCS: 36415; 71045; 71260; 80053; 83735; 83880; 84484; 85025; 85610; 85730; 94640; 96374; 99285-25; J1644; Q9967